=== PATIENT | male | born 1950 | race Caucasian/White ===

== ENCOUNTER 2022-03-24 21:47 | Inpatient (IN) | payer MEDICARE, OTHER ==
[~2022-03-24] VITALS: Ht 165.1 cm; Wt 39.5 kg
--- NOTE | 2022-03-24 22:00 | NUR ---
BIB SON FOR C/O FEVER AND COUGH SINCE TODAY. PT AWAKE A/OX1 UNDERSTAND URUGUAYAN. TOLERATING R/A WITH NO RESP DISTRESS; RESP EVEN AND NON LABORED. CONNECTED PT TO POX AND MONITOR. SAFETY MEASURES IN PLACE.
--- NOTE | 2022-03-24 22:17 | NUR ---
RECTAL TEMP 99.0F
--- NOTE | 2022-03-24 22:17 | NUR ---
DR. DALLIN MACHADO AT PT'S BEDSIDE
[2022-03-24] MEDS ORDERED: ACETAMINOPHEN 650 MG/SUPP.RECT RC ONE ×2 (22:25→22:30)
--- NOTE | 2022-03-24 22:27 | NUR ---
AIRCRAFT POWERPLANT REPAIRER AT PT'S BEDSIDE
--- NOTE | 2022-03-24 22:28 | NUR ---
EMT AT PT'S BEDSIDE FOR EKG
--- NOTE | 2022-03-24 23:01 | NUR ---
ESTABLISHED IV RFA #18G S/L. BLOOD, URINE, COVID ANTIGEN, AND INFLUENZA SWAB COLLECTED AND SENT TO LAB.
[2022-03-24 23:17] LABS: BASOPHILS % (AUTO) 0.1 % (0.0-2.0); EOSINOPHILS % (AUTO) 0.1 % (0.0-6.0); HEMATOCRIT 40 % (39-51); HEMOGLOBIN 13.1 g/dL (13.5-17.5); LYMPHOCYTES # (AUTO) 0.5 K/uL (0.8-4.8); LYMPHOCYTES % (AUTO) 5.1 % (20.0-44.0); MEAN CORPUSCULAR HGB CONC 33 g/dl (31.0-36.0); MEAN CORPUSCULAR VOLUME 99 fL (80-96); MONOCYTES # (AUTO) 0.4 K/uL (0.1-1.30); MONOCYTES % (AUTO) 4.7 % (2.0-12.0); PLATELET COUNT (AUTO) 157 K/uL (150-450); RED BLOOD CELL COUNT(AUTO) 3.97 MIL/uL (4.5-6.0); WHITE BLOOD COUNT (AUTO) 8.8 K/uL (4.3-11.0)
[2022-03-24 23:20] LABS: BILIRUBIN,URINE NEGATIVE (NEGATIVE); COLOR,URINE YELLOW (YELLOW); LEUKOCYTE ESTERASE ,URINE NEGATIVE (NEGATIVE); NITRITE, URINE NEGATIVE (NEGATIVE); PH,URINE 5.5 (5.0-8.0); PROTEIN,URINE TRACE mg/dl (NEGATIVE); UGLUCOSE NEGATIVE (NEGATIVE); UROBILINOGEN,URINE 0.2 EU/dL (0.2)
[2022-03-24 23:26] LABS: CARBON DIOXIDE 28 mmol/L (21-32); CHLORIDE 103 mmol/L (98-107); CREATININE 1.2 mg/dL (0.6-1.3); GLUCOSE 135 mg/dL (74-106); POTASSIUM 4.2 mmol/L (3.5-5.1); SODIUM SERUM 139 mmol/L (136-145); UREA NITROGEN, BLOOD 29 mg/dL (7-18)
[2022-03-24 23:32] LABS: ALANINE AMINOTRANSFERASE 19 U/L (12-78); ALBUMIN 3.4 g/dL (3.4-5.0); ALKALINE PHOSPHATASE 61 U/L (46-116); ASPARTATE AMINOTRANSFERASE 27 U/L (15-37); BILIRUBIN,DIRECT 0.1 mg/dL (0.0-0.2); BILIRUBIN,TOTAL 0.3 mg/dL (0.2-1.0); TOTAL PROTEIN, SERUM 8.6 g/dL (6.4-8.2)
--- NOTE | 2022-03-24 23:45 | NUR ---
COVID POSITIVE; DR. CHU DO AWARE. CONTACT DROPLET ISO IN PLACE.
[2022-03-25] VITALS (15 sets, daily range): BP systolic 72–122; BP diastolic 35–55
[2022-03-25] MEDS ORDERED: IV NS 0.9% 1,000 ML BAG IV ONE
--- NOTE | 2022-03-25 01:27 | NUR ---
SALESPERSON BOOKS AT PT'S BEDSIDE
--- NOTE | 2022-03-25 01:40 | NUR ---
MRSA SWAB COLLECTED AND SENT TO LAB. PATIENT'S BELONGINGS LIST DONE.
[2022-03-25] MEDS ORDERED: ONDANSETRON HCL/PF 4 MG/2 ML VIAL IVP PRN (02:00)
[2022-03-25] MEDS ORDERED: ALBUTEROL FS 2.5 MG/0.5 ML VIAL.NEB NEB PRN (02:00)
[2022-03-25] MEDS ORDERED: QUET25TA PO (02:14)
[2022-03-25] MEDS ORDERED: FOLI1CAP7 PO (02:14)
[2022-03-25] MEDS ORDERED: MEMA10TA PO (02:14)
--- NOTE | 2022-03-25 02:30 | NUR ---
REPORT GIVEN TO KATHRYN WEAVER RN FOR KAYLEEN
--- NOTE | 2022-03-25 02:54 | NUR ---
COMPENSATION COORDINATOR NOTES: RECEIVED REPORT FROM SECURITIES VAULT SUPERVISOR LARRY. PT TRANSFERRED TO MEG FROM ER, PLACED IN ROOM 104 BED 1. PT AWAKE, ALERT/ORIENTED X1 CONFUSION AND UNCLEAR SPEECH. ABLE TO SAY ONLY HIS NAME IN [place] BUT DOESN'T REMEMBER ANYTHING ELSE. ON O2 AT 2L/MIN VIA N/C AND PT TOLERATED WELL. O2 SAT 98%. IV ACCESS ON RFA#18G INTACT AND PATENT. NO S/S OF INFILTRATIONS. NO C/O PAIN OR DISCOMFORT. NO ACUTE DISTRESS. BODY ASSESSMENT DONE. NO OPEN SKIN OR SKIN DISCOLORATION. NOTED. SKIN INTACT AND DRY TO TOUCH. ON CARDIAC MONITORING- HR 84. ALL SAFETY MEASURES IN PLACE. BED IN LOWEST POSITION AND LOCKED. SIDE RAILS UP X3, BED ALARM ON. PLACE CALL LIGHT WITH IN REACH. WILL CONTINUE TO MONITOR
--- NOTE | 2022-03-25 03:01 | NUR ---
PT TRANSFERRED TO MEG 104 VIA ACLS PROTOCOL. VSS. ALL BELONGINGS INCLUDING W/C WITH PT. PT TOLERATED TRANSFER WELL.
[2022-03-25] MEDS: IV NS 0.9% 1,000 ML IV SCH ×2 (03:35→15:25)
--- NOTE | 2022-03-25 06:30 | NUR ---
RN CLOSING NOTES: PT AWAKE, ALERT/ORIENTED X1 CONFUSION AND UNCLEAR SPEECH. ON O2 AT 2L/MIN VIA N/C AND PT TOLERATED WELL. O2 SAT 98%. IV ACCESS ON RFA#18G INTACT AND PATENT. NO S/S OF INFILTRATIONS. NS RUNNING AT 75CC/HR. NO FACIAL GRIMACING NOTED. NO ACUTE DISTRESS. IV THERAPY GIVEN PER ORDER. ALL SAFETY MEASURES IN PLACE. BED IN LOWEST POSITION AND LOCKED. SIDE RAILS UP X3, BED ALARM ON. PLACE CALL LIGHT WITH IN REACH. WILL ENDORSE TO MORNING SHIFT NURSE.
[2022-03-25] MEDS: IPRATROPIUM/ALBUTEROL INHALER IH SCH ×3 (06:41→17:00)
--- NOTE | 2022-03-25 07:36 | NUR ---
RN OPENING NOTES: RECEIVED PT IN BED, A/O X1 WITH CONFUSION AND UNCLEAR SPEECH. ON O2 AT 2L/MIN VIA N/C AND PT TOLERATED WELL. O2 SAT 98%. IV ACCESS ON RFA#18G INTACT AND PATENT. NO S/S OF INFILTRATIONS. NS RUNNING AT 75CC/HR. NO FACIAL GRIMACING NOTED. NO ACUTE DISTRESS. ALL SAFETY MEASURES IN PLACE. BED IN LOWEST POSITION AND LOCKED. SIDE RAILS UP X3, BED ALARM ON. PLACE CALL LIGHT WITH IN REACH. WILL ENDORSE TO MORNING SHIFT NURSE.
[2022-03-25] MEDS: DOCUSATE SODIUM LIQ 100 MG/10 ML UDC PO SCH ×2 (08:10→16:05)
[2022-03-25] MEDS: POLYETHYLENE GLYCOL 3350 17 GM POWD.PACK PO SCH (08:11)
[2022-03-25] MEDS: HEPARIN SODIUM, PORCINE 5000 UNITS/1 ML VIAL SQ SCH ×2 (08:12→21:06)
[2022-03-25] MEDS ORDERED: DEXAMETHASONE 1 MG TABLET PO SCH (09:00)
--- NOTE | 2022-03-25 16:15 | NUR ---
LATEST BP 80/37, PER IAN JARA, CURRENTLY GIVING 1L BOLUS OF LR. WILL REPORT BACK TO INVESTIGATIVE SHOPPER WITH NEW BP ONCE BOLUS COMPLETE.
--- NOTE | 2022-03-25 19:10 | NUR ---
RN OPENING NOTE RECEIVED PATIENT RESTING IN BED. AWAKE, ALERT AND ORIENTED TO NAME ONLY. CONFUSED AT BASELINE. NO S/SX OF PAIN NOTED AT THIS TIME. CONTINUES ON O2 2L VIA NC WITH NO S/SX OF RESPIRATORY DISTRESS NOTED. IV ACCESS TO RIGHT FOREARM #18G INTACT AND PATENT. CONTINUES ON IV D5LR 500CC BOLUS. TELE MONITOR IN PLACE WITH CURRENT READING SR. CALL LIGHT WITHIN REACH. ASPIRATION, FALL AND SAFETY PRECAUTIONS MAINTAINED. ALL NEEDS ATTENDED TO AT THIS TIME.
--- NOTE | 2022-03-25 19:16 | NUR ---
latest bp is 104/40. Per Cesar Zamora another 500ml bolus of LR infusing.
--- NOTE | 2022-03-25 19:30 | NUR ---
RN CLOSING NOTES: PT IN BED, A/O X1 WITH CONFUSION AND UNCLEAR SPEECH. ON O2 AT 2L/MIN VIA N/C, O2 SAT 98%. IV ACCESS ON RFA#18G INTACT AND PATENT. NO S/S OF INFILTRATIONS. 500ML BOLUS OF LR RUNNING. NO FACIAL GRIMACING NOTED. NO ACUTE DISTRESS. ALL SAFETY MEASURES IN PLACE. BED IN LOWEST POSITION AND LOCKED. SIDE RAILS UP X3, BED ALARM ON. PLACE CALL LIGHT WITH IN REACH. WILL ENDORSE TO TOUR SALES REPRESENTATIVE NURSE FOR KAYLEEN.
--- NOTE | 2022-03-25 20:30 | NUR ---
2030 Patient remains hypotensive after 1.5 liter of LR bolus. BP checked 85/40 on the machine and 72/35 manually. Patient awake and responsive, but confused. No signs of distress noted. O2 saturation 95% on 2L NC. Dr. Vela was notified with order to transfer patient to ICU to start on Levophed drip. Order noted.
[2022-03-25] MEDS ORDERED: NOREPINEPHRINE 8 MG in IV NS 0.9% 242 ML IV PRN (21:00)
--- NOTE | 2022-03-25 21:30 | NUR ---
2130 Report given to MARLON Romeo for transfer of care with questions answered.
--- NOTE | 2022-03-25 21:40 | NUR ---
2140 Transferred to ICU on ACLS protocol. Patient awake and in no apparent distress.
[2022-03-25] MEDS: IV D5 LR 1,000 ML IV PRN (21:42)
--- NOTE | 2022-03-25 21:42 | NUR ---
ICU/SPONGE PRESS OPERATOR PT RECEIVED FROM MEG, ROOM 104 FOR LOW PT. PT PLACED ON MONITOR. MOSES CATH PLACED. STARTED IVF THAT WAS ORDERED DOWN STAIRS. PT'S BLOOD PRESSURE IS STABLE AT 100'S. WILL CONTINUE TO MONITOR THIS PT.
--- NOTE | 2022-03-25 21:50 | NUR ---
ICU/CIRCULATION SALES REPRESENTATIVE MOSES CATH WAS PLACED AND RESTRAINTS WERE PLACED, PT PULLING AT LINE AND WAS VERY WET. PT HAS POTENTIAL FOR SKIN BREAK DOWN.
--- NOTE | 2022-03-25 21:56 | NUR ---
ADULT CROSSING GUARD NOTE PATIENT TRANSFERRED TO ICU ROOM 255 UNDER ACLS PROTOCOL.
--- NOTE | 2022-03-25 22:00 | NUR ---
ICU/RENTAL COORDINATOR BELONGING LIST DONE, DID NOT FIND ONE IN THE CHART.
--- NOTE | 2022-03-25 22:45 | NUR ---
ICU/ENGLISH HORN PLAYER STARTED LEVO ON THIS PT FOR LOW BLOOD PRESSURE IN THE 80'S BY PROGRAM PRODUCTION SPECIALIST NURSE. WILL CONTINUE TO MONITOR THIS PT.
[2022-03-26] VITALS (97 sets, daily range): BP systolic 68–149; BP diastolic 26–98
[2022-03-26] MEDS: IPRATROPIUM/ALBUTEROL INHALER IH SCH ×4 (00:01→18:00)
--- NOTE | 2022-03-26 00:10 | NUR ---
ICU/COMPOUNDER NOTIFED MD ABOUT LOW HEART RATE SAID TO START DOPAMINE TO KEEP HEART RATE GREATER THAN 60 AND SBP GREATER THAN MAP GREATER THAN 65. WAITING FOR PHARMACY TO APPROVE THIS.
[2022-03-26] MEDS ORDERED: DOPamine 400 MG/D5W 250 ML RTU BAG IV ONE (00:30)
[2022-03-26] MEDS ORDERED: DOPamine 400MG/D5W 250ML RTU 250 ML IV PRN (00:30)
--- NOTE | 2022-03-26 00:52 | NUR ---
ICU/VP SOFTWARE ENGINEERING MIDLINE PLACED FOR THIS PT. PT HAS POOR IV ACCESS. WILL ZEUS NUE TO MONITOR THIS PT.
[2022-03-26] MEDS: DOPamine 400MG/D5W 250ML RTU 250 ML IV PRN ×2 (01:15→18:00)
--- NOTE | 2022-03-26 01:32 | NUR ---
ICU/CLUTCH MECHANIC DOPAMINE WAS STARTED AND LEVO STOP FOR LOW HEART RATE AND MAINTAIN BLOOD PRESSURE, BY CUSTOM LEATHER PRODUCTS MAKER NURSE. WILL CONTINUE TO MONITOR THIS PT'S HEART RATE AND BLOOD PRESSURE.
--- NOTE | 2022-03-26 04:00 | NUR ---
ICU/BUYING AGENT PT HAS TEMP. 100.4 GAVE PO TYLENOL FOR THIS. ALSO PT HAD LARGE BM WHEN TURNED AND REPOSITIONED FOR COMFORT AND CARE. WILL CONTINUE TO MONITOR THIS PT AND SATURATION.
[2022-03-26] MEDS: ACETAMINOPHEN 325 MG TABLET PO PRN ×2 (04:02→20:36)
[2022-03-26 04:17] LABS: BASOPHILS % (AUTO) 0.1 % (0.0-2.0); HEMATOCRIT 32 % (39-51); HEMOGLOBIN 11.1 g/dL (13.5-17.5); LYMPHOCYTES # (AUTO) 0.7 K/uL (0.8-4.8); LYMPHOCYTES % (AUTO) 7.8 % (20.0-44.0); MEAN CORPUSCULAR HGB CONC 35 g/dl (31.0-36.0); MEAN CORPUSCULAR VOLUME 98 fL (80-96); MONOCYTES # (AUTO) 0.4 K/uL (0.1-1.30); MONOCYTES % (AUTO) 3.8 % (2.0-12.0); NEUTROPHILS # (AUTO) 8.3 K/uL (1.8-8.9); NEUTROPHILS % (AUTO) 88.3 % (43.0-81.0); PLATELET COUNT (AUTO) 115 K/uL (150-450); RED BLOOD CELL COUNT(AUTO) 3.28 MIL/uL (4.5-6.0); WHITE BLOOD COUNT (AUTO) 9.4 K/uL (4.3-11.0)
[2022-03-26 04:30] LABS: ALANINE AMINOTRANSFERASE 20 U/L (12-78); ALBUMIN 2.3 g/dL (3.4-5.0); ALKALINE PHOSPHATASE 44 U/L (46-116); ASPARTATE AMINOTRANSFERASE 28 U/L (15-37); BILIRUBIN,TOTAL 0.5 mg/dL (0.2-1.0); CALCIUM, SERUM 7.8 mg/dL (8.5-10.1); CARBON DIOXIDE 27 mmol/L (21-32); CHLORIDE 106 mmol/L (98-107); CREATININE 0.8 mg/dL (0.6-1.3); GLUCOSE 146 mg/dL (74-106); MAGNESIUM 1.6 mg/dL (1.8-2.4); PHOSPHORUS 1.6 mg/dL (2.5-4.9); POTASSIUM 3.8 mmol/L (3.5-5.1); SODIUM SERUM 139 mmol/L (136-145); TOTAL PROTEIN, SERUM 6.1 g/dL (6.4-8.2); UREA NITROGEN, BLOOD 16 mg/dL (7-18)
--- NOTE | 2022-03-26 04:59 | NUR ---
ICU/PACKAGE DELIVERY ROOM SERVICE RUNNER PT'S BLOOD PRESSURE AND HEART RATE WAS BOTH LOW AT 54 HEART RATE, BLOOD PRESSURE 73/35. CHARGE NURSE NOTIFED ABOUT THIS, SHE THEN INCREASED THE DOPAMINE BY 5MCG TO NOW TOTAL OF 7MCG. WILL MONITOR THIS PT.
--- NOTE | 2022-03-26 05:26 | NUR ---
ICU/MAINTENANCE TEAM LEADER PT'S HEART RATE DECREASED DOWN TO 40'S, THEN CHARGE NURSE INCREASED THE DOPA DRIP FROM 7 TO 12 NOW. WILL CONTINUE TO MONITOR THIS PT.
--- NOTE | 2022-03-26 06:03 | NUR ---
ICU/DIRECTOR OF CONTENT AND PROGRAMMING BEDSIDE EDUCATIONAL PSYCHOLOGIST SAID PT AT 0500 WENT INTO SINUS ARRHYTHMIA, 2 DEGREE HEART BLOCK. STAT EKG WAS DONE TO SEE. DOESN'T SHOW THIS HOWEVER WILL PASS ON TO DAY NURSE.
--- NOTE | 2022-03-26 08:00 | NUR ---
RN NOTES PT FOUND SEMI FOWLERS DISPLAYING NO S/S OF ACUTE DISTRESS, FLACC = 0 AND BREATHING IS EVEN AND UNLABORED ON 4L O2 NC. RN MADE MULTIPLE ATTEMPTS TO COMMUNICATE WITH PATIENT IN [place] (LUC CONWAY, & CON ROSAS). PT WAS NOT INTERACTING WITH ENVIRONMENT. FOOD WAS PLACED IN FRONT OF PATIENT'S MOUTH AND DID NOT EAT. UNABLE TO GIVE PO RX AT THIS TIME. PRIMARY PROVIDER WILL BE INFORMED. R UA ML IS PATIENT AND INTACT. MOSES CATH RESERVOIR BELOW PATIENT DRAINING BY GRAVITY. BILATERAL SOFT WRISTS APPLIED, PULSES PALPATED AND CAP REFILL < 3 SECONDS BILATERALLY. RN WILL CONTINUE CARE PLAN AND ANTICIPATE NEEDS. SAFETY MEASURES IN PLACE, BED LOCKED AND IN LOWEST POSITION, SIDE RAILS UPX2, CALL LIGHT WITHIN REACH, BED ALARM ARMED.
[2022-03-26] MEDS: DOCUSATE SODIUM LIQ 100 MG/10 ML UDC PO SCH ×3 (08:08→17:00)
[2022-03-26] MEDS: VIT B CMPLX 3/FA/VIT C/BIOTIN 1 TAB TABLET PO SCH ×2 (08:08→08:33)
[2022-03-26] MEDS: QUETIAPINE FUMARATE 25 MG TABLET PO SCH ×2 (08:08→08:33)
[2022-03-26] MEDS: MEMANTINE HCL 5 MG TABLET PO SCH ×2 (08:08→08:33)
[2022-03-26] MEDS: POLYETHYLENE GLYCOL 3350 17 GM POWD.PACK PO SCH ×2 (08:08→08:33)
[2022-03-26] MEDS: HEPARIN SODIUM, PORCINE 5000 UNITS/1 ML VIAL SQ SCH ×2 (08:10→20:21)
[2022-03-26] MEDS: NEUTRA PHOS 1 POWD.PACKET PO SCH ×2 (10:30→18:30)
[2022-03-26] MEDS ORDERED: Magnesium 1GM/D5W 100ML PREMIX 100 ML IV SCH (10:30)
[2022-03-26] MEDS: Magnesium 1GM/D5W 100ML PREMIX 100 ML IV SCH ×2 (10:42→12:14)
[2022-03-26] MEDS: HYDROCORTISONE SOD SUCCINATE 100 MG/2 ML VIAL IV SCH ×3 (10:59→20:21)
[2022-03-26 11:21] LABS: THYROID STIMULATING HORMONE 0.672 uIU/mL (0.358-3.74)
--- NOTE | 2022-03-26 11:40 | NUR ---
RN NOTES RN ATTEMPTED AGAIN TO COMMUNICATE WITH PT, OFFERED WATER (AQUA) COFFEE (COFFEE) AND APPLE JUICE (JUGO DE MANZANA), PT WAS NOT INTERACTING AT ALL WITH NURSE. PT RESPONSIVE TO TACTILE STIMULATION. RN INFORMED DR GABRIELA MD GAVE ORDERS: KPHOS 15 MMOL IV X1. RN ACKNOWLEDGED AND WILL EXECUTE ORDER.
[2022-03-26] MEDS ORDERED: POTASSIUM PHOSPHATE MM 15 MMOL in IV NS 0.9% 250 ML IV SCH (12:00)
--- NOTE | 2022-03-26 12:20 | NUR ---
MD COMMUNICATION RN INFORMED MD OF PT FEVER. 101.4, MD GAVE ORDER: GIVE ACETAMINOPHEN 650MG SUPP Q6H FEVER OR MILD PAIN. RN ACKNOWLEDGED AND WILL EXECUTE ORDER
[2022-03-26] MEDS: ACETAMINOPHEN 650 MG/SUPP.RECT RC PRN (12:59)
[2022-03-26] MEDS: IV D5 LR 1,000 ML IV PRN (13:22)
--- NOTE | 2022-03-26 18:30 | NUR ---
NURSES NOTES K PHOS WAS GIVEN VIA IV
--- NOTE | 2022-03-26 18:54 | NUR ---
RN NOTES PT FOUND SEMI FOWLERS DISPLAYING NO S/S OF ACUTE DISTRESS, FLACC = 0 AND BREATHING IS EVEN AND UNLABORED ON 4L O2 NC. R UA ML IS PATIENT AND INTACT. MOSES CATH RESERVOIR BELOW PATIENT DRAINING BY GRAVITY. BILATERAL SOFT WRISTS APPLIED, PULSES PALPATED AND CAP REFILL < 3 SECONDS BILATERALLY. RN WILL CONTINUE CARE PLAN AND ANTICIPATE NEEDS. SAFETY MEASURES IN PLACE, BED LOCKED AND IN LOWEST POSITION, SIDE RAILS UPX2, CALL LIGHT WITHIN REACH, BED ALARM ARMED. Addendum: 03/26/22 at 1907 by JESSICA REVELES RN CORRECTION: SBAR AND REPORT GIVEN TO GEOTECHNICAL ENGINEERING TECHNICIAN RN, ALL QUESTIONS ANSWERED. PT ENDORSED IN STABLE CONDITION FOR KAYLEEN.
--- NOTE | 2022-03-26 20:45 | NUR ---
ICU/UI ENGINEER PT HAS TEMP. 100.4 GAVE PO TYLENOL FOR THIS, CRUSHED WITH PUDDING. ALSO PT HAD LARGE BM WHEN TURNED AND REPOSITIONED FOR COMFORT AND CARE. WILL CONTINUE TO MONITOR THIS PT AND SATURATION.
[2022-03-27] VITALS (102 sets, daily range): BP systolic 45–153; BP diastolic 26–83
--- NOTE | 2022-03-27 00:28 | NUR ---
ICU/FURNITURE STAINER PT IS CONFUSED UNABLE TO USE HIS INHALER. PT HAS HISTORY OF ADVANCE DEMENTIA.
[2022-03-27 04:23] LABS: BASOPHILS % (AUTO) 0.1 % (0.0-2.0); HEMATOCRIT 35 % (39-51); HEMOGLOBIN 11.9 g/dL (13.5-17.5); LYMPHOCYTES # (AUTO) 0.6 K/uL (0.8-4.8); LYMPHOCYTES % (AUTO) 8.7 % (20.0-44.0); MEAN CORPUSCULAR HGB CONC 34 g/dl (31.0-36.0); MEAN CORPUSCULAR VOLUME 97 fL (80-96); MONOCYTES # (AUTO) 0.3 K/uL (0.1-1.30); MONOCYTES % (AUTO) 3.9 % (2.0-12.0); NEUTROPHILS # (AUTO) 5.7 K/uL (1.8-8.9); NEUTROPHILS % (AUTO) 87.3 % (43.0-81.0); PLATELET COUNT (AUTO) 132 K/uL (150-450); RED BLOOD CELL COUNT(AUTO) 3.61 MIL/uL (4.5-6.0); WHITE BLOOD COUNT (AUTO) 6.6 K/uL (4.3-11.0)
[2022-03-27 04:46] LABS: ALANINE AMINOTRANSFERASE 24 U/L (12-78); ALBUMIN 2.3 g/dL (3.4-5.0); ALKALINE PHOSPHATASE 47 U/L (46-116); ASPARTATE AMINOTRANSFERASE 32 U/L (15-37); BILIRUBIN,TOTAL 0.3 mg/dL (0.2-1.0); CALCIUM, SERUM 7.8 mg/dL (8.5-10.1); CARBON DIOXIDE 27 mmol/L (21-32); CHLORIDE 99 mmol/L (98-107); CREATININE 0.9 mg/dL (0.6-1.3); GLUCOSE 154 mg/dL (74-106); MAGNESIUM 1.9 mg/dL (1.8-2.4); PHOSPHORUS 2.9 mg/dL (2.5-4.9); SODIUM SERUM 135 mmol/L (136-145); TOTAL PROTEIN, SERUM 6.6 g/dL (6.4-8.2); UREA NITROGEN, BLOOD 9 mg/dL (7-18)
[2022-03-27] MEDS: IPRATROPIUM/ALBUTEROL INHALER IH SCH ×4 (05:09→17:38)
--- NOTE | 2022-03-27 05:09 | NUR ---
ICU/MAIL CARRIER PT IS CONFUSED UNABLE TO USE HIS 0600 INHALER. PT HAS HISTORY OF ADVANCE DEMENTIA.
[2022-03-27] MEDS: HYDROCORTISONE SOD SUCCINATE 100 MG/2 ML VIAL IV SCH ×3 (05:28→20:55)
[2022-03-27] MEDS: IV D5 LR 1,000 ML IV PRN (06:06)
[2022-03-27] MEDS ORDERED: DOCUSATE SODIUM 100 MG CAPSULE PO PRN (08:00)
--- NOTE | 2022-03-27 08:00 | NUR ---
RN NOTES RECEIVED PATIENT IN THE CONFUSED ON O24LNC O2-94NC. HR-59. PATIENT ON DOPAMINE DRIP 10MCG/KG/MIN. PATIENT CONFUSED, UNABLE TO UNDERSTAND CONCEPTS, HARD TO FOLLOW UP DIRECTION. MOSES DRAINING VIA GRAVITY, IV ACCESS ON FLACO MIDLINE INTACT, INFUSING D5LR @75 ML/HR, AND DOPAMINE. RECHECKED RESTRAIN BILATERAL WRISTS INTACT. ASSIST TURN AND REPOSTION Q 2 HR. WILL FOLLOW UP.
[2022-03-27] MEDS: VIT B CMPLX 3/FA/VIT C/BIOTIN 1 TAB TABLET PO SCH (08:25)
[2022-03-27] MEDS: QUETIAPINE FUMARATE 25 MG TABLET PO SCH (08:25)
[2022-03-27] MEDS: MEMANTINE HCL 5 MG TABLET PO SCH (08:25)
[2022-03-27] MEDS: HEPARIN SODIUM, PORCINE 5000 UNITS/1 ML VIAL SQ SCH ×2 (08:26→20:57)
[2022-03-27] MEDS ORDERED: POTASSIUM CHLORIDE 20 MEQ TAB.PRT.SR PO SCH ×4 (08:30→09:00)
[2022-03-27] MEDS ORDERED: PIPERACILLIN /TAZOBACTAM 3.375 G in IV D5W 50 ML IV SCH (08:30)
[2022-03-27 09:07] LABS: *SPE A/G RATIO 0.8 (0.7-1.7); *SPE ALPHA-1-GLOBULIN 0.3 g/dL (0.0-0.4); *SPE ALPHA-2-GLOBULIN 0.7 g/dL (0.4-1.0); *SPE M-SPIKE Not Observed g/dL (Not Observed)
[2022-03-27] MEDS: PIPERACILLIN /TAZOBACTAM 3.375 G in IV D5W 100 ML IV SCH ×3 (09:23→20:54)
[2022-03-27] MEDS: DOPamine 400MG/D5W 250ML RTU 250 ML IV PRN ×2 (09:36→20:58)
[2022-03-27] MEDS: POTASSIUM CL. PREMIX PERIPHER. 50 ML IV SCH ×8 (09:52→17:38)
[2022-03-27] MEDS: ACETAMINOPHEN 650 MG/SUPP.RECT RC PRN (14:54)
--- NOTE | 2022-03-27 14:54 | NUR ---
rn notes T-100.7 F, ADMINISTERED TYLENOL 650 MG RECTAL SUPP.
--- NOTE | 2022-03-27 17:57 | NUR ---
RN NOTES T-100F, PM CARE DONE ,DUE MEDICATION ADMINISTERED, BP- 128/67, P-60. INFUSING DOPAMINE @14MCG/KG/MIN, ASSIST TURN AND REPOSTION, MOSES DRAINING VIA GRAVITY, RESTRAIN RECHECKED Q 2 HR. PATIENT NPO FOR ASPIRATION PRECAUTION, WAITING SWALLOW EVALUATION. PER FAMILY REFUSED NGT INSERTION. HOSPITALIST AWARE OF. ENDORSED ONCOMING NURSE KAYLEEN.
--- NOTE | 2022-03-27 20:15 | NUR ---
ICU/CASHIER AND WAITER/WAITRESS STABLE BLOOD PRESSURE, CHARGE NURSE MADE AWARE OF THIS AND DECREASED DOPA TO 12MCG FROM 14. WILL CONTINUE TO CLOESLY MONITOR THIS PT AND HIS BLOOD PRESSURE.
--- NOTE | 2022-03-27 22:10 | NUR ---
ICU/BALL POINTS INSPECTOR STABLE BLOOD PRESSURE, CHARGE NURSE MADE AWARE OF THIS AND DECREASED DOPA TO 10MCG FROM 12. WILL CONTINUE TO CLOESLY MONITOR THIS PT AND HIS BLOOD PRESSURE.
--- NOTE | 2022-03-27 23:00 | NUR ---
ICU/CLIPPER COUNTERS STAT CHEST XRAY DONE TO R/O ASPIRATION LOW SAT'S, XRAY SHOWS NEW RIGHT LOWER LOBE OPACITY AND LEFT LOWER LOBE OPACITY IS WORSE. WILL MONITOR THIS PT AND HIS SATURATION.
[2022-03-28] VITALS (90 sets, daily range): BP systolic 79–157; BP diastolic 43–93
--- NOTE | 2022-03-28 00:10 | NUR ---
ICU/CATCHER PLUG PT IS CONFUSED UNABLE TO USE HIS INHALER. PT HAS HISTORY OF ADVANCE DEMENTIA.
[2022-03-28] MEDS: HYDROCORTISONE SOD SUCCINATE 100 MG/2 ML VIAL IV SCH ×3 (04:56→20:42)
[2022-03-28] MEDS: PIPERACILLIN /TAZOBACTAM 3.375 G in IV D5W 100 ML IV SCH ×3 (04:57→20:42)
--- NOTE | 2022-03-28 05:10 | NUR ---
ICU/SOIL TECHNOLOGIST STABLE BLOOD PRESSURE, CHARGE NURSE MADE AWARE OF THIS AND DECREASED DOPA TO 8MCG FROM 10. WILL CONTINUE TO CLOESLY MONITOR THIS PT AND HIS BLOOD PRESSURE.
[2022-03-28 05:17] LABS: HEMATOCRIT 37 % (39-51); HEMOGLOBIN 12.7 g/dL (13.5-17.5); LYMPHOCYTES # (AUTO) 0.4 K/uL (0.8-4.8); MEAN CORPUSCULAR HGB CONC 34 g/dl (31.0-36.0); MEAN CORPUSCULAR VOLUME 96 fL (80-96); MONOCYTES # (AUTO) 0.2 K/uL (0.1-1.30); MONOCYTES % (AUTO) 1.8 % (2.0-12.0); NEUTROPHILS # (AUTO) 11.9 K/uL (1.8-8.9); NEUTROPHILS % (AUTO) 95.2 % (43.0-81.0); PLATELET COUNT (AUTO) 130 K/uL (150-450); RED BLOOD CELL COUNT(AUTO) 3.87 MIL/uL (4.5-6.0); WHITE BLOOD COUNT (AUTO) 12.5 K/uL (4.3-11.0)
[2022-03-28 05:26] LABS: ALANINE AMINOTRANSFERASE 21 U/L (12-78); ALBUMIN 2.3 g/dL (3.4-5.0); ALKALINE PHOSPHATASE 46 U/L (46-116); ASPARTATE AMINOTRANSFERASE 27 U/L (15-37); BILIRUBIN,TOTAL 0.4 mg/dL (0.2-1.0); CALCIUM, SERUM 8.2 mg/dL (8.5-10.1); CARBON DIOXIDE 31 mmol/L (21-32); CHLORIDE 101 mmol/L (98-107); CREATININE 0.9 mg/dL (0.6-1.3); GLUCOSE 154 mg/dL (74-106); POTASSIUM 3.9 mmol/L (3.5-5.1); SODIUM SERUM 135 mmol/L (136-145); TOTAL PROTEIN, SERUM 6.8 g/dL (6.4-8.2); UREA NITROGEN, BLOOD 10 mg/dL (7-18)
[2022-03-28] MEDS: IPRATROPIUM/ALBUTEROL INHALER IH SCH ×5 (06:00→23:26)
--- NOTE | 2022-03-28 06:41 | NUR ---
ICU/DIRECTOR OF SPECIAL EVENTS PT IS CONFUSED UNABLE TO USE HIS INHALER. PT HAS HISTORY OF ADVANCE DEMENTIA. WILL HAVE DAY NURSE ADDRESS THIS WITH EITHER A SPACER OR DISCONTINUE THIS MED.
--- NOTE | 2022-03-28 06:49 | NUR ---
ICU/PRODUCT SUPPORT SPECIALIST UNSTABLE BLOOD PRESSURE, CHARGE NURSE MADE AWARE OF THIS AND INCREASED DOPA TO 10MCG FROM 8. WILL CONTINUE TO CLOESLY MONITOR THIS PT AND HIS BLOOD PRESSURE.
--- NOTE | 2022-03-28 08:00 | NUR ---
RN NOTES PATIENT CONFUSED ON O2-5LNC O2-94NC. HR-59. PATIENT ON DOPAMINE DRIP 10MCG/KG/MIN. UNABLE TO UNDERSTAND CONCEPTS. MOSES DRAINING VIA GRAVITY, IV ACCESS ON FLACO MIDLINE INTACT. RECHECKED RESTRAIN BILATERAL WRISTS INTACT. ASSIST TURN AND REPOSTION Q 2 HR. WILL FOLLOW UP.
[2022-03-28] MEDS: MEMANTINE HCL 5 MG TABLET PO SCH (08:09)
[2022-03-28] MEDS: QUETIAPINE FUMARATE 25 MG TABLET PO SCH (08:10)
[2022-03-28] MEDS: VIT B CMPLX 3/FA/VIT C/BIOTIN 1 TAB TABLET PO SCH (08:10)
[2022-03-28] MEDS: HEPARIN SODIUM, PORCINE 5000 UNITS/1 ML VIAL SQ SCH ×2 (08:17→20:42)
[2022-03-28] MEDS: DOPamine 400MG/D5W 250ML RTU 250 ML IV PRN (12:38)
--- NOTE | 2022-03-28 18:00 | NUR ---
RN NOTES PM CARE DONE, PATIENT STILL NPO, SW NOT DONE TODAY, HOSPITALIST AWARE OF. ASSIST TURN AND REPOSTION Q 2 HR. ENDORSED ONCOMING NURSE FOLLOW PLAN OF CARE.
--- NOTE | 2022-03-28 23:27 | NUR ---
ICU/JUNIOR ACCOUNTANT BOOKKEEPER PT IS CONFUSED UNABLE TO USE HIS INHALER. PT HAS HISTORY OF ADVANCE DEMENTIA.
[2022-03-29] VITALS (99 sets, daily range): BP systolic 66–151; BP diastolic 34–92
[2022-03-29] MEDS: DOPamine 400MG/D5W 250ML RTU 250 ML IV PRN ×2 (03:21→21:10)
[2022-03-29] MEDS: HYDROCORTISONE SOD SUCCINATE 100 MG/2 ML VIAL IV SCH ×3 (05:58→21:09)
[2022-03-29] MEDS: IPRATROPIUM/ALBUTEROL INHALER IH SCH ×3 (05:58→18:00)
[2022-03-29] MEDS: PIPERACILLIN /TAZOBACTAM 3.375 G in IV D5W 100 ML IV SCH ×3 (05:58→21:09)
[2022-03-29 06:03] LABS: HEMATOCRIT 38 % (39-51); HEMOGLOBIN 13.1 g/dL (13.5-17.5); LYMPHOCYTES # (AUTO) 0.5 K/uL (0.8-4.8); LYMPHOCYTES % (AUTO) 5.1 % (20.0-44.0); MEAN CORPUSCULAR HGB CONC 35 g/dl (31.0-36.0); MEAN CORPUSCULAR VOLUME 95 fL (80-96); MONOCYTES # (AUTO) 0.3 K/uL (0.1-1.30); MONOCYTES % (AUTO) 3.3 % (2.0-12.0); NEUTROPHILS # (AUTO) 9.6 K/uL (1.8-8.9); NEUTROPHILS % (AUTO) 91.6 % (43.0-81.0); PLATELET COUNT (AUTO) 125 K/uL (150-450); RED BLOOD CELL COUNT(AUTO) 3.96 MIL/uL (4.5-6.0); WHITE BLOOD COUNT (AUTO) 10.5 K/uL (4.3-11.0)
--- NOTE | 2022-03-29 06:30 | NUR ---
ICU/BOTTLE MACHINE OPERATOR PT IS CONFUSED UNABLE TO USE HIS INHALER. PT HAS HISTORY OF ADVANCE DEMENTIA. ASKED DAY NURSE TO GET AN INHALER SPACER, RT WAS ASKED FOR ONE HOWEVER WAS REFEREE TO CENTRAL SUPPLY FOR ONE.
[2022-03-29 06:40] LABS: ALANINE AMINOTRANSFERASE 24 U/L (12-78); ALBUMIN 2.2 g/dL (3.4-5.0); ALKALINE PHOSPHATASE 43 U/L (46-116); ASPARTATE AMINOTRANSFERASE 24 U/L (15-37); BILIRUBIN,TOTAL 0.4 mg/dL (0.2-1.0); CALCIUM, SERUM 8.2 mg/dL (8.5-10.1); CARBON DIOXIDE 32 mmol/L (21-32); CHLORIDE 100 mmol/L (98-107); CREATININE 0.9 mg/dL (0.6-1.3); GLUCOSE 152 mg/dL (74-106); MAGNESIUM 2.1 mg/dL (1.8-2.4); POTASSIUM 3.1 mmol/L (3.5-5.1); SODIUM SERUM 136 mmol/L (136-145); UREA NITROGEN, BLOOD 16 mg/dL (7-18)
--- NOTE | 2022-03-29 07:30 | NUR ---
RN NOTES PT FOUND SEMI FOWLERS DISPLAYING NO S/S OF DISTRESS, FLACC = 0 AND BREATHING IS EVEN AND UNLABORED ON 3L O2 NC. R UA ML IS PATIENT AND INTACT. MOSES CATH RESERVOIR IS BELOW PATIENT DRAINING BY GRAVITY. BILATERAL SOFT WRISTS APPLIED, PULSES PALPATED BILATERALLY AND CAP REFILL < 3 SECONDS BILATERALLY. RN WILL CONTINUE CARE PLAN AND ANTICIPATE NEEDS. SAFETY MEASURES IN PLACE, BED LOCKED AND IN LOWEST POSITION, SIDE RAILS UPX3, CALL LIGHT WITHIN REACH, BED ALARM ARMED.
[2022-03-29 08:07] LABS: TOTAL PROTEIN, SERUM 6.9 g/dL (6.4-8.2)
[2022-03-29] MEDS: HEPARIN SODIUM, PORCINE 5000 UNITS/1 ML VIAL SQ SCH ×2 (08:43→21:10)
[2022-03-29] MEDS: VIT B CMPLX 3/FA/VIT C/BIOTIN 1 TAB TABLET PO SCH (08:44)
[2022-03-29] MEDS: QUETIAPINE FUMARATE 25 MG TABLET PO SCH (08:44)
[2022-03-29] MEDS: MEMANTINE HCL 5 MG TABLET PO SCH (08:44)
[2022-03-29] MEDS ORDERED: POTASSIUM CHLORIDE 20 MEQ POWDER PACKET GT SCH (10:00)
[2022-03-29] MEDS: POTASSIUM CL. PREMIX PERIPHER. 50 ML IV SCH ×6 (10:15→16:09)
--- NOTE | 2022-03-29 11:45 | NUR ---
FREIGHT RATE CLERK COMMUNICATION RN SPOKE TO FREIGHT RATE CLERK ESTEFANI, FREIGHT RATE CLERK GAVE ORDERS: PERFORM BEDSIDE SWALLOW EVAL. RN ACKNOWLEDGED AND WILL EXECUTE ORDER DIRECTED.
--- NOTE | 2022-03-29 12:30 | NUR ---
RN NOTE BED SIDE SWALLOW EVAL FOUND PT HAD NO DIFFICULTY SWALLOWING APPLE SAUCE. PT CHOKED ON WATER AND STARTED TO COUGH. RN WILL INFORM PROVIDER.
--- NOTE | 2022-03-29 13:50 | NUR ---
DIRECTOR GLOBAL MARKET RESEARCH COMMUNICATION RN SPOKE TO DIRECTOR GLOBAL MARKET RESEARCH JARA ABOUT FINDINGS OF BEDSIDE SWALLOW EVAL. DIRECTOR GLOBAL MARKET RESEARCH GAVE ORDERS: PUREE CARDIAC DIET. RN ACKNOWLEDGED AND WILL EXECUTE ORDERED.
--- NOTE | 2022-03-29 19:14 | NUR ---
RN NOTES PT FOUND SEMI FOWLERS DISPLAYING NO S/S OF DISTRESS, FLACC = 0 AND BREATHING IS EVEN AND UNLABORED ON 3L O2 NC. R UA ML IS PATIENT AND INTACT. MOSES CATH RESERVOIR IS BELOW PATIENT DRAINING BY GRAVITY. BILATERAL SOFT WRISTS APPLIED, PULSES PALPATED BILATERALLY AND CAP REFILL < 3 SECONDS BILATERALLY. SBAR AND REPORT GIVEN TO ENDOCRINOLOGY TEACHER, ALL QUESTIONS ANSWERED SAFETY MEASURES IN PLACE, BED LOCKED AND IN LOWEST POSITION, SIDE RAILS UPX3, CALL LIGHT WITHIN REACH, BED ALARM ARMED. PT ENDORSED FOR KAYLEEN.
--- NOTE | 2022-03-29 21:30 | NUR ---
ICU/CARE MANAGEMENT SPECIALIST TRIED TO FEED PT DINNER HOWEVER PT WOULD COUGH WITH SOME OF THE LIQUIDS. STOPPED FOR NOW TO ALLOW PT TO RECOVER. WILL MONITOR THIS PT. PT APPEARS TO BE MORE CONFUSED THAN USUAL.
[2022-03-30] VITALS (85 sets, daily range): BP systolic 51–145; BP diastolic 30–73
--- NOTE | 2022-03-30 00:36 | NUR ---
ICU/SKATE BOARDER PT IS MORE CONFUSED THAN USUAL UNABLE TO USE HIS INHALER. PT HAS HISTORY OF ADVANCE DEMENTIA. DAY NURSE WASN'T ABLE TO GET AN INHALER SPACER, WILL TRY CENTRAL SUPPLY FOR ONE.
[2022-03-30 04:23] LABS: HEMATOCRIT 38 % (39-51); HEMOGLOBIN 13.1 g/dL (13.5-17.5); LYMPHOCYTES # (AUTO) 0.3 K/uL (0.8-4.8); LYMPHOCYTES % (AUTO) 3.4 % (20.0-44.0); MEAN CORPUSCULAR HGB CONC 35 g/dl (31.0-36.0); MEAN CORPUSCULAR VOLUME 96 fL (80-96); MONOCYTES # (AUTO) 0.5 K/uL (0.1-1.30); MONOCYTES % (AUTO) 5.3 % (2.0-12.0); NEUTROPHILS # (AUTO) 8.3 K/uL (1.8-8.9); NEUTROPHILS % (AUTO) 91.3 % (43.0-81.0); PLATELET COUNT (AUTO) 132 K/uL (150-450); RED BLOOD CELL COUNT(AUTO) 3.97 MIL/uL (4.5-6.0); WHITE BLOOD COUNT (AUTO) 9.1 K/uL (4.3-11.0)
[2022-03-30 04:36] LABS: ALANINE AMINOTRANSFERASE 23 U/L (12-78); ALBUMIN 2.2 g/dL (3.4-5.0); ALKALINE PHOSPHATASE 46 U/L (46-116); ASPARTATE AMINOTRANSFERASE 27 U/L (15-37); BILIRUBIN,TOTAL 0.4 mg/dL (0.2-1.0); CALCIUM, SERUM 8.2 mg/dL (8.5-10.1); CARBON DIOXIDE 32 mmol/L (21-32); CHLORIDE 102 mmol/L (98-107); CREATININE 0.8 mg/dL (0.6-1.3); GLUCOSE 142 mg/dL (74-106); MAGNESIUM 2.2 mg/dL (1.8-2.4); POTASSIUM 3.4 mmol/L (3.5-5.1); SODIUM SERUM 137 mmol/L (136-145); TOTAL PROTEIN, SERUM 6.6 g/dL (6.4-8.2); UREA NITROGEN, BLOOD 16 mg/dL (7-18)
[2022-03-30] MEDS: PIPERACILLIN /TAZOBACTAM 3.375 G in IV D5W 100 ML IV SCH ×3 (05:15→21:02)
[2022-03-30] MEDS: HYDROCORTISONE SOD SUCCINATE 100 MG/2 ML VIAL IV SCH ×3 (05:15→21:02)
[2022-03-30] MEDS: IPRATROPIUM/ALBUTEROL INHALER IH SCH ×4 (06:00→17:16)
--- NOTE | 2022-03-30 06:10 | NUR ---
ICU/LITHOGRAPHED PLATE INSPECTOR PT IS MORE CONFUSED THAN USUAL UNABLE TO USE HIS INHALER. PT HAS HISTORY OF ADVANCE DEMENTIA. DAY NURSE WASN'T ABLE TO GET AN INHALER SPACER, WILL TRY CENTRAL SUPPLY FOR ONE, AGAIN TODAY. OR HAVE MD DISCONTINUE THIS.
--- NOTE | 2022-03-30 07:35 | NUR ---
ICU/RN PT IS RESTING ON THE BED.ON 3L N/C SAT O2-99%.ON DOPAMINE DRIP.AWAKE CONFUSED.HAS DEMENTIA.WAITING FOR SWALLOW EVAL.NPO.RIGHT UPPER ARM MIDLINE.F/C IN PLACE DRAINING WITH YELLOW URINE.BILATERAL SOFT WRIST RESTRAINS ON.LABS REVIEW.MD AWARE.AFEBRILE.NO PAIN REPORTED AT THIS TIME.
[2022-03-30] MEDS: HEPARIN SODIUM, PORCINE 5000 UNITS/1 ML VIAL SQ SCH ×2 (08:29→21:03)
[2022-03-30] MEDS: QUETIAPINE FUMARATE 25 MG TABLET PO SCH (08:30)
[2022-03-30] MEDS: MEMANTINE HCL 5 MG TABLET PO SCH (08:30)
[2022-03-30] MEDS: VIT B CMPLX 3/FA/VIT C/BIOTIN 1 TAB TABLET PO SCH (08:30)
--- NOTE | 2022-03-30 09:00 | NUR ---
ICU/RN DUE MEDS ARE GIVEN ORDERED.PT IS NOT PASS SWALLOW EVALUATION. ALL PO MEDS HOLD..MD NOTIFIED.
[2022-03-30] MEDS ORDERED: POTASSIUM CHLORIDE 20 MEQ POWDER PACKET PO SCH (10:00)
[2022-03-30] MEDS ORDERED: JEVITY 1.2 CAL 1,000 ML BOTTLE GT PRN ×2 (11:00)
--- NOTE | 2022-03-30 11:30 | NUR ---
ICU/RN RIGHT NG TUBE INSERTED ORDERED.OK TO START TUBE FEEDING.CHEST X-RAY ORDERED .
[2022-03-30] MEDS: DOPamine 400MG/D5W 250ML RTU 250 ML IV PRN (15:46)
--- NOTE | 2022-03-30 18:00 | NUR ---
ICU/RN PM CARE PROVIDED.DUE MEDS ARE GIVEN ORDERED.PT HAS NG TUBE FEEDING.NO RESIDUAL NOTED.REPOSITION FOR COMFORT.CONTINUE MONITORING.
--- NOTE | 2022-03-30 19:30 | NUR ---
SCOURER NOTE PATIENT ASLEEP ON THE BED A&OX0. ALL VSS. PATIENT SATTING AT 100% ON 3L NC. SB. DIET JEVITY 1.2 @30 R NG TUBE. IV FLACO ML. DRIP DOPAMINE 8MCG NS 10MLS/HR. ALL SAFETY FALL PRECAUTIONS IN PLACE, BED IN LOWEST POSITION, BED LOCK ON, BED ALARM ON, SIDE RAILS UP, CALL LIGHT WITHIN REACH. WILL CONTINUE TO MONITOR.
[2022-03-31] VITALS (75 sets, daily range): BP systolic 65–146; BP diastolic 33–70
[2022-03-31] MEDS: IPRATROPIUM/ALBUTEROL INHALER IH SCH ×4 (00:16→18:00)
[2022-03-31] MEDS: PIPERACILLIN /TAZOBACTAM 3.375 G in IV D5W 100 ML IV SCH ×3 (05:10→21:08)
[2022-03-31] MEDS: HYDROCORTISONE SOD SUCCINATE 100 MG/2 ML VIAL IV SCH ×3 (05:11→21:08)
[2022-03-31 05:18] LABS: BASOPHILS % (AUTO) 0.1 % (0.0-2.0); HEMATOCRIT 38 % (39-51); HEMOGLOBIN 13.1 g/dL (13.5-17.5); LYMPHOCYTES # (AUTO) 0.3 K/uL (0.8-4.8); MEAN CORPUSCULAR HGB CONC 35 g/dl (31.0-36.0); MEAN CORPUSCULAR VOLUME 96 fL (80-96); MONOCYTES # (AUTO) 0.3 K/uL (0.1-1.30); MONOCYTES % (AUTO) 3.3 % (2.0-12.0); NEUTROPHILS # (AUTO) 7.8 K/uL (1.8-8.9); NEUTROPHILS % (AUTO) 93.6 % (43.0-81.0); PLATELET COUNT (AUTO) 125 K/uL (150-450); RED BLOOD CELL COUNT(AUTO) 3.95 MIL/uL (4.5-6.0); WHITE BLOOD COUNT (AUTO) 8.4 K/uL (4.3-11.0)
[2022-03-31 05:37] LABS: ALANINE AMINOTRANSFERASE 35 U/L (12-78); ALBUMIN 2.1 g/dL (3.4-5.0); ALKALINE PHOSPHATASE 57 U/L (46-116); ASPARTATE AMINOTRANSFERASE 45 U/L (15-37); BILIRUBIN,TOTAL 0.5 mg/dL (0.2-1.0); CALCIUM, SERUM 8.1 mg/dL (8.5-10.1); CARBON DIOXIDE 32 mmol/L (21-32); CHLORIDE 102 mmol/L (98-107); CREATININE 0.8 mg/dL (0.6-1.3); GLUCOSE 168 mg/dL (74-106); MAGNESIUM 2.2 mg/dL (1.8-2.4); POTASSIUM 3.7 mmol/L (3.5-5.1); SODIUM SERUM 140 mmol/L (136-145); TOTAL PROTEIN, SERUM 6.7 g/dL (6.4-8.2); UREA NITROGEN, BLOOD 16 mg/dL (7-18)
--- NOTE | 2022-03-31 07:15 | NUR ---
DITCH WORKER closing NOTE PATIENT ASLEEP ON THE BED A&OX0. ALL VSS. PATIENT SATTING AT 100% ON 3L NC. SB. DIET JEVITY 1.2 @40 R NG TUBE. IV FLACO ML. DRIP DOPAMINE 8MCG NS 10MLS/HR. ALL SAFETY FALL PRECAUTIONS IN PLACE, BED IN LOWEST POSITION, BED LOCK ON, BED ALARM ON, SIDE RAILS UP, CALL LIGHT WITHIN REACH. ALL VSS, CARE ENDORSED TO DAY SHIFT.
--- NOTE | 2022-03-31 08:00 | NUR ---
RN NOTES PT FOUND SEMI FOWLERS DISPLAYING NO S/S OF DISTRESS, FLACC = 0 AND BREATHING IS EVEN AND UNLABORED ON 5L O2 NC. R UA ML IS PATIENT AND INTACT. NO RESIDUAL MEASURED VIA NGT, TUBE FEEDING INCREASED TO REACH GOAL. BILATERAL SOFT WRISTS APPLIED, PULSES PALPATED BILATERALLY AND CAP REFILL < 3 SECONDS BILATERALLY. MOSES CATH RESERVOIR BELOW PATIENT DRAINING BY GRAVITY. RN WILL CONTINUE CARE PLAN AND ANTICIPATE NEEDS. SAFETY MEASURES IN PLACE, BED LOCKED AND IN LOWEST POSITION, SIDE RAILS UPX3, CALL LIGHT WITHIN REACH, BED ALARM ARMED.
[2022-03-31] MEDS: QUETIAPINE FUMARATE 25 MG TABLET PO SCH (08:10)
[2022-03-31] MEDS: MEMANTINE HCL 5 MG TABLET PO SCH (08:10)
[2022-03-31] MEDS: VIT B CMPLX 3/FA/VIT C/BIOTIN 1 TAB TABLET PO SCH (08:10)
[2022-03-31] MEDS: HEPARIN SODIUM, PORCINE 5000 UNITS/1 ML VIAL SQ SCH ×2 (08:11→21:12)
[2022-03-31] MEDS: DOPamine 400MG/D5W 250ML RTU 250 ML IV PRN ×2 (08:42→21:19)
[2022-03-31 10:53] LABS: ABG BASE EXCESS 5.2 mmol/L; ABG OXYGEN SATURATION 80.5 % (92.0-98.5); ABG PCO2 41.7 mmHg (35.0-45.0); ABG PH 7.466 (7.350-7.450); AaDO2 338.9 mmHg; COHb 0.3 % (0.5-1.5); MetHb 0.3 % (0.0-1.5); SITE, ABG Right Brachial; VENT MODE, BG simple mask
--- NOTE | 2022-03-31 11:13 | NUR ---
pt. placed into high flow nasal cannula @ 40 flow / 100% fio2 due to 88%- 90% spo2, 43 PaO2, and increased work of breathing. rn aware. Addendum: 03/31/22 at 1135 by JOSÉ ANTONIO THOMAS RT Amended: Links added.
[2022-03-31] MEDS: JEVITY 1.2 CAL 1,000 ML BOTTLE GT PRN (13:09)
--- NOTE | 2022-03-31 19:20 | NUR ---
RN NOTES PT FOUND SEMI FOWLERS DISPLAYING NO S/S OF DISTRESS, FLACC = 0 AND BREATHING IS EVEN AND UNLABORED ON HIGH FLOW 40L 100% FIO2. R UA ML IS PATIENT AND INTACT. NO RESIDUAL MEASURED VIA NGT, TUBE FEEDING REACHED GOAL. BILATERAL SOFT WRISTS APPLIED, PULSES PALPATED BILATERALLY AND CAP REFILL < 3 SECONDS BILATERALLY. MOSES CATH RESERVOIR BELOW PATIENT DRAINING BY GRAVITY. SBAR AND REPORT GIVEN TO BEHAVIOR INTERVENTIONIST RN, ALL QUESTIONS ANSWERED. SAFETY MEASURES IN PLACE, BED LOCKED AND IN LOWEST POSITION, SIDE RAILS UPX3, CALL LIGHT WITHIN REACH, BED ALARM ARMED. PT ENDORSED FOR KAYLEEN.
--- NOTE | 2022-03-31 19:46 | NUR ---
RN OPENING NOTES RECEIVED CARE OF PATIENT FROM AM NURSE, PATIENT IN BED, ASLEEP, WAKES UP TO TOUCH ONLY, CONFUSED, NON-INTERACTIVE. PATIENT ON HIGH FLOW O2 VIA NC AT 40L 100% FIO2. PATIENT'S TELE MONITOR READING SINUS RHYTHM WITH HR OF 63, NO DISTRESS NOTED ON PATIENT. FLACO MIDLINE INTACT RUNNING DOPAMINE DRIP AT 12 MCG/KG/MIN. MOSES CATH IN PACE, PATENT. NGT IN PLACE, NO RESIDUAL NOTED, AUSCULTATED FOR POSITIVE PLACEMENT. BILATERAL SOFT WRIST RESTRAINTS IN PLACE, NO CIRCULATORY OR SKIN COMPROMISE. SAFETY MEASURES PUT IN PLACE. WILL CARRY OUT PLAN OF CARE.
--- NOTE | 2022-03-31 20:14 | NUR ---
RN NOTES PATIENT IS CONFUSED, DOES NOT FOLLOW COMMANDS, HISTORY OF ADVANCE DEMENTIA, PATIENT UNABLE TO USE INHALER.
[2022-04-01] VITALS (96 sets, daily range): BP systolic 84–142; BP diastolic 40–73
--- NOTE | 2022-04-01 00:14 | NUR ---
RN NOTES PATIENT REMAINS CONFUSED, NON-INTERRACTIVE, UNABLE TO FOLLOW COMMANDS. PATIENT UNABLE TO USE INHALER.
[2022-04-01] MEDS: HYDROCORTISONE SOD SUCCINATE 100 MG/2 ML VIAL IV SCH ×3 (05:32→21:08)
[2022-04-01] MEDS: PIPERACILLIN /TAZOBACTAM 3.375 G in IV D5W 100 ML IV SCH ×3 (05:32→21:08)
[2022-04-01] MEDS: IPRATROPIUM/ALBUTEROL INHALER IH SCH ×4 (06:00→18:19)
--- NOTE | 2022-04-01 07:14 | NUR ---
RN NOTES ENDORSED CARE OF PATIENT TO AM NURSE, PATIENT SLEEPING, WAKES UP TO TOUCH AND LIGHT PAINFUL STIMULI, PATIENT IS NON-INTERRACTIVE, DOES NOT FOLLOW COMMANDS. PATIENT NEEDS ANTICIPATED AND MET THROUGHOUT SHIFT. PLAN OF CARE REVIEWED AND CARRIED OUT. SAFETY MEASURES KEPT IN PLACE. ENDORSED CARE OF PATIENT TO AM NURSE FOR KAYLEEN.
--- NOTE | 2022-04-01 07:25 | NUR ---
RN NOTES PT FOUND SEMI FOWLERS DISPLAYING NO S/S OF DISTRESS, FLACC = 0 AND BREATHING IS EVEN AND UNLABORED ON HIGH FLOW NC, RT CURRENTLY TENDING TO PT. R UA ML IS PATIENT AND INTACT. NO RESIDUAL MEASURED VIA NGT, TUBE FEEDING INCREASED TO REACH GOAL. BILATERAL SOFT WRISTS APPLIED, PULSES PALPATED BILATERALLY AND CAP REFILL < 3 SECONDS BILATERALLY. MOSES CATH RESERVOIR BELOW PATIENT DRAINING BY GRAVITY. RN WILL CONTINUE CARE PLAN AND ANTICIPATE NEEDS. SAFETY MEASURES IN PLACE, BED LOCKED AND IN LOWEST POSITION, SIDE RAILS UPX3, CALL LIGHT WITHIN REACH, BED ALARM ARMED.
--- NOTE | 2022-04-01 07:39 | NUR ---
RT PATIENT REC'D ON HFNC 40L 100% spo2 93%. PATIENT AWAKE, WEAK, NOT COMPLETELY RESPONDING TO COMMANDS. Addendum: 04/01/22 at 0749 by MARYURI JALLOH RT Amended: Links added.
[2022-04-01] MEDS: QUETIAPINE FUMARATE 25 MG TABLET PO SCH (08:22)
[2022-04-01] MEDS: MEMANTINE HCL 5 MG TABLET PO SCH (08:22)
[2022-04-01] MEDS: VIT B CMPLX 3/FA/VIT C/BIOTIN 1 TAB TABLET PO SCH (08:22)
[2022-04-01] MEDS: HEPARIN SODIUM, PORCINE 5000 UNITS/1 ML VIAL SQ SCH ×3 (08:23→17:23)
[2022-04-01] MEDS: IV NS 0.9% 1,000 ML IV PRN ×2 (09:41→21:56)
--- NOTE | 2022-04-01 10:30 | NUR ---
NURSING NOTES HEPARIN 5,000 UNITS WAS NOT GIVEN AT 1030. ORDER WAS CANCELED AND RENEWED, 5000 UNITS GIVEN SQ AT 0900.
[2022-04-01] MEDS: DOPamine 400MG/D5W 250ML RTU 250 ML IV PRN ×2 (10:46→21:49)
[2022-04-01] MEDS: JEVITY 1.2 CAL 1,000 ML BOTTLE GT PRN (12:03)
--- NOTE | 2022-04-01 19:05 | NUR ---
RN NOTES PT FOUND SEMI FOWLERS DISPLAYING NO S/S OF DISTRESS, FLACC = 0 AND BREATHING IS EVEN AND UNLABORED ON HIGH FLOW NC. R UA ML IS PATIENT AND INTACT. BILATERAL SOFT WRISTS APPLIED, PULSES PALPATED BILATERALLY AND CAP REFILL < 3 SECONDS BILATERALLY. MOSES CATH RESERVOIR BELOW PATIENT DRAINING BY GRAVITY. SBAR AND REPORT GIVEN TO PROFESSOR OF LEGAL STUDIES RN, ALL QUESTIONS ANSWERED. SAFETY MEASURES IN PLACE, BED LOCKED AND IN LOWEST POSITION, SIDE RAILS UPX3, CALL LIGHT WITHIN REACH, BED ALARM ARMED. PT ENDORSED FOR KAYLEEN
--- NOTE | 2022-04-01 19:19 | NUR ---
RN OPENING NOTES RECEIVED CARE OF PATIENT, PATIENT IS SLEEPING, WAKES UP TO TOUCH AND PAINFUL STIMILI, CONFUSED. PATIENT ON HIGH FLOW O2 VIA NC AT 40L, 60% FIO2, BREATHING EVENLY AND UNLABORED, O2 SAT 98%. FLACO MIDLINE RUNNING WITH DOPAMINE AT 13MCG/KG/MIN. PLAN OF CARE REVIEWED, SAFETY MEASURES IMPLEMENTED. WILL CARRY OUT PLAN OF CARE.
[2022-04-02] VITALS (99 sets, daily range): BP systolic 57–223; BP diastolic 25–188
[2022-04-02] MEDS: IPRATROPIUM/ALBUTEROL INHALER IH SCH ×4 (00:05→18:12)
[2022-04-02 04:19] LABS: HEMATOCRIT 37 % (39-51); HEMOGLOBIN 12.5 g/dL (13.5-17.5); LYMPHOCYTES # (AUTO) 0.2 K/uL (0.8-4.8); LYMPHOCYTES % (AUTO) 1.7 % (20.0-44.0); MEAN CORPUSCULAR HGB CONC 34 g/dl (31.0-36.0); MEAN CORPUSCULAR VOLUME 96 fL (80-96); MONOCYTES # (AUTO) 0.3 K/uL (0.1-1.30); MONOCYTES % (AUTO) 2.7 % (2.0-12.0); NEUTROPHILS # (AUTO) 9.3 K/uL (1.8-8.9); NEUTROPHILS % (AUTO) 95.6 % (43.0-81.0); PLATELET COUNT (AUTO) 136 K/uL (150-450); RED BLOOD CELL COUNT(AUTO) 3.89 MIL/uL (4.5-6.0); WHITE BLOOD COUNT (AUTO) 9.7 K/uL (4.3-11.0)
[2022-04-02] MEDS: HYDROCORTISONE SOD SUCCINATE 100 MG/2 ML VIAL IV SCH ×3 (04:22→21:45)
[2022-04-02 04:30] LABS: CALCIUM, SERUM 7.5 mg/dL (8.5-10.1); CARBON DIOXIDE 35 mmol/L (21-32); CHLORIDE 105 mmol/L (98-107); CREATININE 0.7 mg/dL (0.6-1.3); GLUCOSE 211 mg/dL (74-106); MAGNESIUM 2.2 mg/dL (1.8-2.4); PHOSPHORUS 1.3 mg/dL (2.5-4.9); SODIUM SERUM 141 mmol/L (136-145); UREA NITROGEN, BLOOD 15 mg/dL (7-18)
[2022-04-02 04:57] LABS: POTASSIUM 2.8 mmol/L (3.5-5.1)
[2022-04-02] MEDS: PIPERACILLIN /TAZOBACTAM 3.375 G in IV D5W 100 ML IV SCH ×3 (05:37→21:44)
[2022-04-02] MEDS: JEVITY 1.2 CAL 1,000 ML BOTTLE GT PRN (06:15)
[2022-04-02] MEDS: POTASSIUM CL. PREMIX PERIPHER. 50 ML IV SCH ×6 (06:29→11:02)
[2022-04-02] MEDS ORDERED: POTASSIUM PHOSPHATE MM 15 MMOL in IV NS 0.9% 250 ML IV SCH (08:00)
--- NOTE | 2022-04-02 08:00 | NUR ---
rn notes PATIENT ON HF , RT WITH THE PATIENT AND SETTING CHANGED 30L/65%. PATIENT TOLERAING NGT FEEDING WELL NO RESIDUAL, RUNNING JEVITY 1.2 @50ML/HR. NOTED BLEEDING FROM MOSES CATH, LAB VALUES CHECKED. IV ACCESS ON FLACO MIDLINE INFUSING DOPAMIN @13MCG/KG/MIN, NS@100ML, REPLACING KCL AT THIS TIME 60MEQ. KEEP HOB ELEVATED FOR ASPIRATION PRECAUTION, ASSIST TURN AND REPOSTION Q 2 HR. SAFETY MEASURES KEPT IN PLACE. RECHECKED RESTRAIN Q 2 HR. WILL FOLLOW UP.
[2022-04-02] MEDS: MEMANTINE HCL 5 MG TABLET PO SCH (08:02)
[2022-04-02] MEDS: QUETIAPINE FUMARATE 25 MG TABLET PO SCH (08:03)
[2022-04-02] MEDS: HEPARIN SODIUM, PORCINE 5000 UNITS/1 ML VIAL SQ SCH ×3 (08:03→17:00)
[2022-04-02] MEDS: VIT B CMPLX 3/FA/VIT C/BIOTIN 1 TAB TABLET PO SCH (08:37)
[2022-04-02] MEDS: DOPamine 400MG/D5W 250ML RTU 250 ML IV PRN ×2 (11:13→23:17)
--- NOTE | 2022-04-02 18:32 | NUR ---
RN N NOTES NOTIFIED LACHO GONZALEZ ABOUT BLEEDING, AND OK HELD HEPARIN SQ.
--- NOTE | 2022-04-02 18:32 | NUR ---
RN NOTES PM CARE DONE, DUE MEDICATION ADMINISTERED, SUCTION, MOUTH CARE DONE. ASSIST TURN AND REPOSTION Q 2 HR. TITRATED DOPAMIN PER PROTOCOL INFUSING 11MCG/KG/HR. ASSIST TURN AND REPOSTION Q 2 HR. MOSES OUTPUT WAS 1100ML, STIL NOTED BLOOD IN THE URINE , HELD HEPARING DRIP. ENDORSED ONCOMING NURSE KAYLEEN.
--- NOTE | 2022-04-02 19:55 | NUR ---
PATIENT REC'D ON HFNC 30L 65% SPO2 95%. PT IS SLEEPING AND NO DISTRESS NOTED AT THIS TIME
--- NOTE | 2022-04-02 20:00 | NUR ---
RN NOTE RECEIVED PT SLEEPIMG, AROUSES EASILY TO VERBAL STIMULI. ON HIGH FLOW NC AT 30 FIO2 65%. NOT IN ANY DISTRESS. NGT IN PLACE AND PATENT. NO RESIDUALS NOTED. ON TUBE FEEDING JEVITY AT 50ML/HR. ON DOPAMINE DRIP AT 11MCG/KG/MIN. IV INTACT AND PATENT. AFEBRILE. ISOLATION PRECAUTION OBSERVED. WILL CONTINUE TO MONITOR.
[2022-04-03] VITALS (98 sets, daily range): BP systolic 52–135; BP diastolic 26–67
[2022-04-03] MEDS: IPRATROPIUM/ALBUTEROL INHALER IH SCH ×5 (00:30→23:34)
[2022-04-03 04:12] LABS: BASOPHILS # (AUTO) 0.1 K/uL (0.0-0.2); BASOPHILS % (AUTO) 0.6 % (0.0-2.0); HEMATOCRIT 34 % (39-51); HEMOGLOBIN 11.7 g/dL (13.5-17.5); LYMPHOCYTES # (AUTO) 0.1 K/uL (0.8-4.8); LYMPHOCYTES % (AUTO) 1.4 % (20.0-44.0); MEAN CORPUSCULAR HGB CONC 34 g/dl (31.0-36.0); MEAN CORPUSCULAR VOLUME 95 fL (80-96); MONOCYTES # (AUTO) 0.3 K/uL (0.1-1.30); MONOCYTES % (AUTO) 3.5 % (2.0-12.0); NEUTROPHILS # (AUTO) 8.5 K/uL (1.8-8.9); NEUTROPHILS % (AUTO) 94.5 % (43.0-81.0); PLATELET COUNT (AUTO) 142 K/uL (150-450); RED BLOOD CELL COUNT(AUTO) 3.59 MIL/uL (4.5-6.0)
[2022-04-03 04:44] LABS: CALCIUM, SERUM 7.4 mg/dL (8.5-10.1); CARBON DIOXIDE 34 mmol/L (21-32); CHLORIDE 106 mmol/L (98-107); CREATININE 0.7 mg/dL (0.6-1.3); GLUCOSE 204 mg/dL (74-106); MAGNESIUM 2.1 mg/dL (1.8-2.4); PHOSPHORUS 1.4 mg/dL (2.5-4.9); SODIUM SERUM 141 mmol/L (136-145); UREA NITROGEN, BLOOD 16 mg/dL (7-18)
[2022-04-03] MEDS: HYDROCORTISONE SOD SUCCINATE 100 MG/2 ML VIAL IV SCH ×3 (04:59→21:06)
[2022-04-03] MEDS: JEVITY 1.2 CAL 1,000 ML BOTTLE GT PRN (05:00)
[2022-04-03] MEDS: PIPERACILLIN /TAZOBACTAM 3.375 G in IV D5W 100 ML IV SCH ×3 (05:00→21:05)
--- NOTE | 2022-04-03 07:06 | NUR ---
RN NOTE PT TOLERATING HIGHFLOW O2 30L 65%. NOT IN ANY DISTRESS. GT FEEDING TOLERATES WELL, NO RESIDUALS NOTED. KEPT HOB ELEVATED. MOSES INPLACE DRAINING YVES COLORED URINE. NO SIGNS OF DISCOMFORT NOTED. CONTINUE WITH DOPAMINE DRIP AT 11MCG/KG/MIN, INFUSING WELL. WILL ENDORSE TO NEXT SHIFT NURSE FOR KAYLEEN.
--- NOTE | 2022-04-03 08:00 | NUR ---
rn notes PT on HIGHFLOW O2 30L 65%. RT WITH PATIENT AND TITRATED TO 60% HF. NOT IN ANY DISTRESS. GT FEEDING TOLERATES WELL, NO RESIDUALS NOTED. KEPT HOB ELEVATED. MOSES INPLACE DRAINING VIA GRAVITY. CONTINUE WITH DOPAMINE DRIP AT 11MCG/KG/MIN, INFUSING WELL.
[2022-04-03] MEDS: POTASSIUM PHOSPHATE MM 15 MMOL in IV NS 0.9% 250 ML IV SCH ×2 (09:38→12:15)
[2022-04-03] MEDS: QUETIAPINE FUMARATE 25 MG TABLET PO SCH (09:38)
[2022-04-03] MEDS: MEMANTINE HCL 5 MG TABLET PO SCH (09:38)
[2022-04-03] MEDS: VIT B CMPLX 3/FA/VIT C/BIOTIN 1 TAB TABLET PO SCH (09:39)
[2022-04-03] MEDS: HEPARIN SODIUM, PORCINE 5000 UNITS/1 ML VIAL SQ SCH ×2 (10:20→17:44)
[2022-04-03] MEDS: DOPamine 400MG/D5W 250ML RTU 250 ML IV PRN (11:39)
[2022-04-03] MEDS: IV NS 0.9% 250 ML IV PRN (13:00)
--- NOTE | 2022-04-03 18:00 | NUR ---
rn notes pm care done, suction, mouth care, due medication administered, titrated dopamin 9 mcg/kg/min per protocol, assist turn and repostion q 2 hr. restrain rechecked for circulation. sanz draining 780 ml yellow output. endorsed oncoming nurse danny.
--- NOTE | 2022-04-03 19:25 | NUR ---
ICU/PLASTER MACHINE TENDER RECIEVED REPORT FROM DAY NURSE. SEE FLOWSHEET FOR ASSESSMENT. PT HAS IV DOPA WHICH IS DOCUMENTED ON IV SPREAD SHEET. WILL CONTINUE TO MONITOR THIS PT.
--- NOTE | 2022-04-03 19:45 | NUR ---
ICU/DIGITAL CONTENT MARKETING MANAGER FOUND N/G TUBE SLIGHTLY OUT AND STILL RUNNING AT 50ML. PUSHED BACK AND SECURE N/G IN PLACE RESIDUALS AT 15ML. WILL CONTINUE TO MONITOR THIS PT AND HIS RESIDUALS.
--- NOTE | 2022-04-03 22:45 | NUR ---
ICU/FILTER OPERATOR PT WAS DEEP SUCTIONED, FOR SATURATION WAS 88-90%. WILL CONTINUE TO MONITOR THIS PT AND HIS SATURATION.
[2022-04-04] VITALS (96 sets, daily range): BP systolic 84–129; BP diastolic 43–82
--- NOTE | 2022-04-04 00:15 | NUR ---
ICU/ABA THERAPIST PT'S SATURATION CAME UP TO 99% FROM 88% EARLIER. WILL CONTINUE TO MONITOR THIS PT AND HIS SATURATION .
--- NOTE | 2022-04-04 03:00 | NUR ---
ICU/FIELD CANE SCALER HELPER PT'S SATURATION IS STABLE AT 99-98%. WILL CONTINUE TO MONITOR THIS PT AND HIS SATURATION.
[2022-04-04] MEDS: PIPERACILLIN /TAZOBACTAM 3.375 G in IV D5W 100 ML IV SCH ×3 (04:58→21:29)
[2022-04-04] MEDS: HYDROCORTISONE SOD SUCCINATE 100 MG/2 ML VIAL IV SCH ×3 (04:58→21:29)
[2022-04-04] MEDS: DOPamine 400MG/D5W 250ML RTU 250 ML IV PRN ×3 (04:59→21:59)
[2022-04-04 05:05] LABS: EOSINOPHILS % (AUTO) 0.1 % (0.0-6.0); HEMATOCRIT 33 % (39-51); HEMOGLOBIN 11.4 g/dL (13.5-17.5); LYMPHOCYTES # (AUTO) 0.3 K/uL (0.8-4.8); LYMPHOCYTES % (AUTO) 3.6 % (20.0-44.0); MEAN CORPUSCULAR HGB CONC 35 g/dl (31.0-36.0); MEAN CORPUSCULAR VOLUME 96 fL (80-96); MONOCYTES # (AUTO) 0.3 K/uL (0.1-1.30); MONOCYTES % (AUTO) 2.6 % (2.0-12.0); NEUTROPHILS # (AUTO) 9.1 K/uL (1.8-8.9); NEUTROPHILS % (AUTO) 93.7 % (43.0-81.0); PLATELET COUNT (AUTO) 151 K/uL (150-450); WHITE BLOOD COUNT (AUTO) 9.7 K/uL (4.3-11.0)
[2022-04-04 05:20] LABS: CALCIUM, SERUM 7.6 mg/dL (8.5-10.1); CARBON DIOXIDE 36 mmol/L (21-32); CHLORIDE 105 mmol/L (98-107); CREATININE 0.8 mg/dL (0.6-1.3); GLUCOSE 140 mg/dL (74-106); PHOSPHORUS 2.6 mg/dL (2.5-4.9); POTASSIUM 3.2 mmol/L (3.5-5.1); SODIUM SERUM 144 mmol/L (136-145); UREA NITROGEN, BLOOD 19 mg/dL (7-18)
[2022-04-04] MEDS: IPRATROPIUM/ALBUTEROL INHALER IH SCH ×3 (05:53→18:17)
--- NOTE | 2022-04-04 07:30 | NUR ---
OPENING NOTE: REPORT RECEIVED FROM TORI MASON. LABS AND ORDERS REVIEWED DURING REPORT. PT IS CURRENTLY ON HI FLOW NASAL CANNULA 60% AT 30L. TUBE FEEDING INFUSING PER MD ORDERS WITHOUT DIFFICULTY. PER REPORT NT SUCTION PRN. DOPAMINE GTT INFUSING PER MD ORDERS TO KEEP SBP >90, CURRENTLY INFUSING AT 9MCG/KG/MIN. PT CHECKED ON HOURLY AND PRN BY NURSING STAFF.
[2022-04-04] MEDS: JEVITY 1.2 CAL 1,000 ML BOTTLE GT PRN (08:27)
[2022-04-04] MEDS ORDERED: POTASSIUM CHLORIDE 20 MEQ TAB.PRT.SR PO SCH (09:00)
[2022-04-04] MEDS ORDERED: POTASSIUM CHLORIDE 20 MEQ POWDER PACKET NG ONE (09:00)
[2022-04-04] MEDS: QUETIAPINE FUMARATE 25 MG TABLET PO SCH (09:16)
[2022-04-04] MEDS: MEMANTINE HCL 5 MG TABLET PO SCH (09:16)
[2022-04-04] MEDS: VIT B CMPLX 3/FA/VIT C/BIOTIN 1 TAB TABLET PO SCH (09:17)
[2022-04-04] MEDS: HEPARIN SODIUM, PORCINE 5000 UNITS/1 ML VIAL SQ SCH ×2 (09:18→18:20)
[2022-04-04] MEDS: IV NS 0.9% 250 ML IV PRN (18:18)
--- NOTE | 2022-04-04 19:07 | NUR ---
END OF SHIFT NOTE: PT HAD A FAIRLY UNEVENTFUL SHIFT. PT WAS PUT ON 10L SIMPLE MASK AT 0915 THIS AM. TUBE FEEDING INFUSING PER MD ORDERS WITHOUT DIFFICULTY. COVID ANTIGEN TEST SWABBED AND SENT TO LAB PER MD ORDERS, RESULTS PENDING. DOPAMINE CONTINUES TO INFUSE AT 9MCG/KG/MIN, UNABLE TO TITRATE TODAY. PT CHECKED ON HOURLY AND PRN BY NURSING STAFF.
--- NOTE | 2022-04-04 19:42 | NUR ---
RT NOTE PT RECEIVED ON SIMPLE MASK @ 10 LPM. PT ASLEEP AT THIS TIME. SPO2 @ 92%, HR 63, RR 20. HIGH FLOW STANDBY. NO RESPIRATORY DISTRESS NOTED AT THIS TIME. WILL CONTINUE TO MONITOR CLOSELY. Addendum: 04/04/22 at 1944 by FAREED REARDON RT Amended: Links added.
--- NOTE | 2022-04-04 19:50 | NUR ---
ICU/AUDIO/VIDEO ENGINEER ID CHERI [id number] ASKED FOR A RAPID BE SENT, DAY SHIFT NURSE COLLECTED AND SENT TO LAB. LAB CALLED WITH A POSITIVE RAPID COVID TEST.
--- NOTE | 2022-04-04 20:30 | NUR ---
ICU/SCIENTIFIC SPECIALIST N/G SUCTIONING WAS DONE, PT'S SATURATION WAS IN THE HIGH 80'S. PT WAS TURN AND REPOSITION FOR COMFORT AND CARE. WILL MONITOR THIS PT.
[2022-04-05] VITALS (96 sets, daily range): BP systolic 58–137; BP diastolic 32–93
[2022-04-05] MEDS: IPRATROPIUM/ALBUTEROL INHALER IH SCH ×4 (00:34→17:37)
--- NOTE | 2022-04-05 02:00 | NUR ---
ICU/SENIOR SOUS CHEF WHILE GIVING PT AM CARE, PT WAS DEEP SUCTIONED. PT WAS ABLE TO COUGH THICK GREEN SPUTUM. SATURATION IS UP FROM 90 TO NOW 99%. WILL CONTINUE TO MONITOR THIS PT AND HIS SATURATION.
[2022-04-05] MEDS: JEVITY 1.2 CAL 1,000 ML BOTTLE GT PRN (04:18)
[2022-04-05] MEDS: PIPERACILLIN /TAZOBACTAM 3.375 G in IV D5W 100 ML IV SCH ×3 (05:11→21:14)
[2022-04-05] MEDS: HYDROCORTISONE SOD SUCCINATE 100 MG/2 ML VIAL IV SCH ×3 (05:11→21:14)
[2022-04-05] MEDS: POLYETHYLENE GLYCOL 3350 17 GM POWD.PACK PO PRN ×2 (05:11→17:35)
[2022-04-05 05:14] LABS: BASOPHILS % (AUTO) 0.1 % (0.0-2.0); HEMATOCRIT 34 % (39-51); HEMOGLOBIN 11.6 g/dL (13.5-17.5); LYMPHOCYTES # (AUTO) 0.1 K/uL (0.8-4.8); LYMPHOCYTES % (AUTO) 1.4 % (20.0-44.0); MEAN CORPUSCULAR HGB CONC 34 g/dl (31.0-36.0); MEAN CORPUSCULAR VOLUME 97 fL (80-96); MONOCYTES # (AUTO) 0.3 K/uL (0.1-1.30); MONOCYTES % (AUTO) 3.1 % (2.0-12.0); NEUTROPHILS % (AUTO) 95.4 % (43.0-81.0); PLATELET COUNT (AUTO) 174 K/uL (150-450); RED BLOOD CELL COUNT(AUTO) 3.54 MIL/uL (4.5-6.0); WHITE BLOOD COUNT (AUTO) 9.4 K/uL (4.3-11.0)
--- NOTE | 2022-04-05 05:30 | NUR ---
ICU/TUBER MACHINE CUTTER PT WAS DEEP SUCTIONED BY RT, WAS ABLE TO GET OUT THICK CHE & GREEN SECRETIONS FROM PT. SATURATION CAME UP TO 100% ON 10 LITERS SIMPLE MASK. WILL CONTINUE TO MONITOR THIS PT.
--- NOTE | 2022-04-05 05:30 | NUR ---
ICU/INTERNET SOURCER PT WAS TURNED AND REPOSITIONED FOUND PT WITH HARD ROUND STOOL. GAVE MIRALAX TO HELP WITH THE CONSTIPATION. WILL CONTINUE TO MONITOR THIS PT AND HIS BM
[2022-04-05 05:43] LABS: CALCIUM, SERUM 7.5 mg/dL (8.5-10.1); CARBON DIOXIDE 35 mmol/L (21-32); CHLORIDE 109 mmol/L (98-107); CREATININE 0.8 mg/dL (0.6-1.3); GLUCOSE 180 mg/dL (74-106); MAGNESIUM 2.3 mg/dL (1.8-2.4); PHOSPHORUS 2.8 mg/dL (2.5-4.9); POTASSIUM 3.9 mmol/L (3.5-5.1); SODIUM SERUM 146 mmol/L (136-145); UREA NITROGEN, BLOOD 21 mg/dL (7-18)
--- NOTE | 2022-04-05 07:30 | NUR ---
OPENING NOTE: RECEIVED REPORT FROM TORI MASON. LABS AND ORDERS REVIEWED DURING REPORT. NO SIGNIFICANT EVENTS OVERNIGHT PER REPORT EXCEPT PT WAS IMPACTED WITH STOOL, MIRALAX GIVEN PER REPORT, WILL CONTINUE TO MONITOR STOOL OUTPUT. PT CONTINUES TO BE DOPAMINE GTT AT 9MCG/KG/MIN, WILL TITRATE PER PROTOCOL IF POSSIBLE. PT CHECKED ON HOURLY AND PRN BY NURSING STAFF.
[2022-04-05 08:23] LABS: LYMPHOCYTES % (MANUAL) 1 % (16-48); MONOCYTES % (MANUAL) 3 % (0-11.0); NEUTROPHILS % (MANUAL) 96 (42-76)
[2022-04-05] MEDS: IV NS 0.9% 1,000 ML IV PRN ×2 (10:06→18:36)
[2022-04-05] MEDS: HEPARIN SODIUM, PORCINE 5000 UNITS/1 ML VIAL SQ SCH ×2 (10:08→17:35)
[2022-04-05] MEDS: MEMANTINE HCL 5 MG TABLET PO SCH (10:10)
[2022-04-05] MEDS: QUETIAPINE FUMARATE 25 MG TABLET PO SCH (10:10)
[2022-04-05] MEDS: VIT B CMPLX 3/FA/VIT C/BIOTIN 1 TAB TABLET PO SCH (10:10)
[2022-04-05] MEDS: DOPamine 400MG/D5W 250ML RTU 250 ML IV PRN (14:11)
[2022-04-05] MEDS: DOCUSATE SODIUM LIQ 100 MG/10 ML UDC NG SCH (17:35)
--- NOTE | 2022-04-05 19:22 | NUR ---
END OF SHIFT NOTE: DOPAMINE GTT INFUSING AT 8MCG/KG/MIN. PT HELPED WITH IMPACTED BM, HAD VERY HARD BROWN BM. STOOL SOFTENER GIVEN. PT NT SUCTIONED X1 THIS SHIFT. PT CHECKED ON HOURLY AND PRN BY NURSING STAFF.
[2022-04-06] VITALS (95 sets, daily range): BP systolic 41–161; BP diastolic 24–90
[2022-04-06] MEDS: IPRATROPIUM/ALBUTEROL INHALER IH SCH ×4 (00:27→17:04)
[2022-04-06] MEDS: IV NS 0.9% 1,000 ML IV PRN ×3 (00:57→22:43)
[2022-04-06] MEDS: JEVITY 1.2 CAL 1,000 ML BOTTLE GT PRN (00:57)
[2022-04-06] MEDS: PIPERACILLIN /TAZOBACTAM 3.375 G in IV D5W 100 ML IV SCH ×2 (04:53→12:30)
[2022-04-06] MEDS: HYDROCORTISONE SOD SUCCINATE 100 MG/2 ML VIAL IV SCH ×3 (04:54→21:08)
[2022-04-06 06:14] LABS: BASOPHILS % (AUTO) 0.1 % (0.0-2.0); HEMATOCRIT 32 % (39-51); LYMPHOCYTES # (AUTO) 0.2 K/uL (0.8-4.8); LYMPHOCYTES % (AUTO) 1.8 % (20.0-44.0); MEAN CORPUSCULAR HGB CONC 35 g/dl (31.0-36.0); MEAN CORPUSCULAR VOLUME 96 fL (80-96); MONOCYTES # (AUTO) 0.4 K/uL (0.1-1.30); MONOCYTES % (AUTO) 4.2 % (2.0-12.0); NEUTROPHILS # (AUTO) 8.6 K/uL (1.8-8.9); NEUTROPHILS % (AUTO) 93.9 % (43.0-81.0); PLATELET COUNT (AUTO) 186 K/uL (150-450); RED BLOOD CELL COUNT(AUTO) 3.32 MIL/uL (4.5-6.0); WHITE BLOOD COUNT (AUTO) 9.1 K/uL (4.3-11.0)
[2022-04-06 06:44] LABS: ALBUMIN 1.5 g/dL (3.4-5.0); BILIRUBIN,TOTAL 0.3 mg/dL (0.2-1.0); CALCIUM, SERUM 7.3 mg/dL (8.5-10.1); CREATININE 0.6 mg/dL (0.6-1.3); PHOSPHORUS 2.3 mg/dL (2.5-4.9)
--- NOTE | 2022-04-06 08:00 | NUR ---
RN NOTES RECEIVED ON MASK 10L ON BEDSIDE MONITOR SHOWS 100% NO SOB NOTED, HR 65. LABS AND ORDERS REVIEWED . DUE MEDICATION ADMINISTERED. RECHECKED RESIDUAL, FLASHER WITH FREE WATER 120ML, PATIENT TOLERATING FEEDING WELL. IV ACCESS ON FLACO INTACT INFUSING CONTINUES DOPAMINE AT 8MCG/KG/MIN, AND NS @125 ML/HR INTACT. WILL TITRATE PER PROTOCOL. MOSSE DRAINING VIA GRAVITY.
[2022-04-06] MEDS: DOCUSATE SODIUM LIQ 100 MG/10 ML UDC NG SCH ×2 (08:11→17:03)
[2022-04-06] MEDS: QUETIAPINE FUMARATE 25 MG TABLET PO SCH (08:11)
[2022-04-06] MEDS: MEMANTINE HCL 5 MG TABLET PO SCH (08:11)
[2022-04-06] MEDS: VIT B CMPLX 3/FA/VIT C/BIOTIN 1 TAB TABLET PO SCH (08:11)
[2022-04-06] MEDS: HEPARIN SODIUM, PORCINE 5000 UNITS/1 ML VIAL SQ SCH ×2 (08:22→17:04)
[2022-04-06] MEDS ORDERED: NEUTRA PHOS 1 POWD.PACKET NG ONE (10:00)
[2022-04-06] MEDS: DOPamine 400MG/D5W 250ML RTU 250 ML IV PRN (10:14)
--- NOTE | 2022-04-06 11:00 | NUR ---
RN NOTES TITRATED DOPAMINE @7MCG/KG/MIN AT THIS TIME.
--- NOTE | 2022-04-06 14:50 | NUR ---
RN NOTES TITRATED DOPAMINE @6MCG/KG/MIN . ASSIST TURN AND REPOSTION Q 2 HR, RECHECKED BILATERAL RESTRAIN Q 2 HR. SUCTION, MOUTH CARE DONE.
--- NOTE | 2022-04-06 18:23 | NUR ---
RN NOTES PM CARE DONE, SUCTION, MOUTH CARE, DUE MEDICATION ADMINISTERED, INFUSING DOPAMINE 6 MCG/KG/MIN, AND NS @125 ML/HR. PATIENT HOB ELEVATED FOR ASPIRATION PRECAUTION, URINE OUTPUT WAS 1150ML. ASSIST TURN AND REPOSTION Q 2 HR, RESTRAIN RECHECKED FIR CIRCULATION. TOLERATING FEEDING WELL. ENDORSED ONCOMING NURSE KAYLEEN.
[2022-04-06] MEDS ORDERED: DOPamine 400MG/D5W 250ML RTU 250 ML IV PRN (19:30)
--- NOTE | 2022-04-06 19:30 | NUR ---
RN Note Received patient in bed, awake, and responsive, producing incomprehensible sounds. Breathing even and unlabored. on 6L/min via nasal cannula with o2 saturation of 95 percent via bedside monitor. No sob noted. Noted with non-productive cough. On tele monitoring. Skin is warm and dry to touch. Noted with right nare NGT infusing jevity at 50 cc/hr. no residual noted. HOB elevated 30 degrees. Right upper arm midline infusing NS at 125 cc/hr and dopamine at 6 mcg. Indwelling sanz catheter intact, draining yellow urine by gravity. Bilateral soft wrist restraints in place. Bilateral radial pulses wnl. Patient released from restraints to perform range of motion. Assisted with turning and repositioning. Bed low, in locked position, Call light within reach.
[2022-04-07] VITALS (94 sets, daily range): BP systolic 65–136; BP diastolic 25–82
[2022-04-07] MEDS: IPRATROPIUM/ALBUTEROL INHALER IH SCH ×4 (00:29→17:59)
[2022-04-07] MEDS: JEVITY 1.2 CAL 1,000 ML BOTTLE GT PRN (03:44)
[2022-04-07 04:36] LABS: BASOPHILS % (AUTO) 0.1 % (0.0-2.0); HEMATOCRIT 27 % (39-51); HEMOGLOBIN 9.3 g/dL (13.5-17.5); LYMPHOCYTES # (AUTO) 0.2 K/uL (0.8-4.8); LYMPHOCYTES % (AUTO) 2.1 % (20.0-44.0); MEAN CORPUSCULAR HGB CONC 35 g/dl (31.0-36.0); MEAN CORPUSCULAR VOLUME 95 fL (80-96); MONOCYTES # (AUTO) 0.4 K/uL (0.1-1.30); MONOCYTES % (AUTO) 5.2 % (2.0-12.0); NEUTROPHILS # (AUTO) 7.1 K/uL (1.8-8.9); NEUTROPHILS % (AUTO) 92.6 % (43.0-81.0); PLATELET COUNT (AUTO) 163 K/uL (150-450); RED BLOOD CELL COUNT(AUTO) 2.83 MIL/uL (4.5-6.0); WHITE BLOOD COUNT (AUTO) 7.7 K/uL (4.3-11.0)
[2022-04-07] MEDS: HYDROCORTISONE SOD SUCCINATE 100 MG/2 ML VIAL IV SCH ×3 (05:22→21:13)
[2022-04-07 05:27] LABS: CALCIUM, SERUM 7.2 mg/dL (8.5-10.1); CARBON DIOXIDE 35 mmol/L (21-32); CHLORIDE 108 mmol/L (98-107); CREATININE 0.6 mg/dL (0.6-1.3); GLUCOSE 103 mg/dL (74-106); MAGNESIUM 1.9 mg/dL (1.8-2.4); PHOSPHORUS 2.6 mg/dL (2.5-4.9); SODIUM SERUM 143 mmol/L (136-145); UREA NITROGEN, BLOOD 13 mg/dL (7-18)
[2022-04-07] MEDS: IV NS 0.9% 1,000 ML IV PRN ×2 (05:37→17:51)
[2022-04-07 05:39] LABS: POTASSIUM 2.5 mmol/L (3.5-5.1)
[2022-04-07] MEDS ORDERED: POTASSIUM CHLORIDE 20 MEQ TAB.PRT.SR PO ONE (06:00)
--- NOTE | 2022-04-07 06:05 | NUR ---
RN Note received critical lab, potassium 2.5. Informed Marce VASQUEZ. New order of 40 MEQ IV and 40 K-Dur. New order noted and carried out.
[2022-04-07] MEDS: POTASSIUM CL. PREMIX PERIPHER. 50 ML IV SCH ×4 (06:36→11:15)
--- NOTE | 2022-04-07 08:00 | NUR ---
RN NOTES Received patient awake and confused, unable to express self. No SOB noted, Breathing even and unlabored. on 3L/min via nasal cannula with o2 saturation of 95 percent via bedside monitor. suction mouth care done. ngt was dislodged, and unable to insert, HOB elevated 30 degrees. Right upper arm midline infusing NS at 125 cc/hr and dopamine at 4mcg/kg/min. Indwelling sanz catheter intact, draining yellow urine by gravity. Bilateral soft wrist restraints in place. Bilateral radial pulses wnl. Patient released from restraints to perform range of motion. Assisted with turning and repositioning. Bed low, in locked position. will follow up.
[2022-04-07] MEDS: DOCUSATE SODIUM LIQ 100 MG/10 ML UDC NG SCH ×3 (08:46→17:00)
[2022-04-07] MEDS: QUETIAPINE FUMARATE 25 MG TABLET PO SCH ×2 (08:46→09:00)
[2022-04-07] MEDS: MEMANTINE HCL 5 MG TABLET PO SCH ×2 (08:46→09:00)
[2022-04-07] MEDS: VIT B CMPLX 3/FA/VIT C/BIOTIN 1 TAB TABLET PO SCH ×2 (08:47→09:00)
[2022-04-07] MEDS: HEPARIN SODIUM, PORCINE 5000 UNITS/1 ML VIAL SQ SCH ×2 (08:48→17:59)
--- NOTE | 2022-04-07 09:00 | NUR ---
rn noted unable to administered due po medication because NGT unable to insert. hospitalist aware of, will try to insert NGT again.
--- NOTE | 2022-04-07 15:45 | NUR ---
rn notes tried 5 times to insert back NGT tube for feeding, but unable,tube was rolled back of the throat. notified hospitalist Dr Apodaca, and get new order swallow evaluation, order taken and carried out.
--- NOTE | 2022-04-07 18:00 | NUR ---
RN NOTES PM CARE DONE, SUCTION, PATIENT CONFUSED, UNABLE TO ADMINISTER PO MEDICATION BECAUSE OF NPO AND SWALLOW EVAL. NEEDS ATTENDED AND ATICIPATED, ASSIST TURN AND REPOSTION, INFUSING DOPAMINE 4MCG/KG/MIN, AND NS @ 125 ML/HR, ENDORSED ONCOMING NURSE, KAYLEEN.
--- NOTE | 2022-04-07 19:30 | NUR ---
RN NOTE Received patient in bed, awake, confused, incomprehensible sounds. Combative. Breathing even and unlabored at this time. On NC at 3l/min, tolerating well, o2 saturation of 95 percent via bedside monitor. On tele monitoring. Skin is warm and dry to touch. noted with right upper arm midline, infusing dopamin at 4 mcg and ns at 125 cc/hr. no infiltration noted. indwelling sanz catheter noted. noted with pinkish urine. no clots. draining by gravity. bilateral soft wrist restraints. Bilateral radial pulses palpable. Bed low, in locked position. will continue to monitor.
[2022-04-08] VITALS (61 sets, daily range): BP systolic 67–127; BP diastolic 21–105
[2022-04-08] MEDS: IPRATROPIUM/ALBUTEROL INHALER IH SCH ×5 (00:48→23:34)
[2022-04-08] MEDS: IV NS 0.9% 1,000 ML IV PRN ×2 (01:01→08:41)
--- NOTE | 2022-04-08 02:30 | NUR ---
RN NOTE NGT was reinserted in left nare 65 cm at the nare. Positive placement via auscultation. KUB was ordered to verify. Radiology with recommendation to advance NGT by 7 cm. NGT was adjusted to 72 cm at the nare. Notified operational trainer, ron. Agreed to wait for AM chest-xray to re-evalutate NGT placement.
[2022-04-08 04:17] LABS: HEMATOCRIT 28 % (39-51); HEMOGLOBIN 9.6 g/dL (13.5-17.5); LYMPHOCYTES # (AUTO) 0.2 K/uL (0.8-4.8); LYMPHOCYTES % (AUTO) 2.3 % (20.0-44.0); MEAN CORPUSCULAR HGB CONC 34 g/dl (31.0-36.0); MEAN CORPUSCULAR VOLUME 97 fL (80-96); MONOCYTES # (AUTO) 0.5 K/uL (0.1-1.30); MONOCYTES % (AUTO) 5.7 % (2.0-12.0); NEUTROPHILS # (AUTO) 7.5 K/uL (1.8-8.9); PLATELET COUNT (AUTO) 177 K/uL (150-450); RED BLOOD CELL COUNT(AUTO) 2.89 MIL/uL (4.5-6.0); WHITE BLOOD COUNT (AUTO) 8.2 K/uL (4.3-11.0)
[2022-04-08 04:34] LABS: ALANINE AMINOTRANSFERASE 70 U/L (12-78); ALBUMIN 1.5 g/dL (3.4-5.0); ALKALINE PHOSPHATASE 55 U/L (46-116); ASPARTATE AMINOTRANSFERASE 43 U/L (15-37); BILIRUBIN,TOTAL 0.4 mg/dL (0.2-1.0); CARBON DIOXIDE 32 mmol/L (21-32); CHLORIDE 109 mmol/L (98-107); CREATININE 0.7 mg/dL (0.6-1.3); GLUCOSE 85 mg/dL (74-106); MAGNESIUM 1.9 mg/dL (1.8-2.4); POTASSIUM 2.9 mmol/L (3.5-5.1); SODIUM SERUM 142 mmol/L (136-145); TOTAL PROTEIN, SERUM 4.5 g/dL (6.4-8.2); UREA NITROGEN, BLOOD 13 mg/dL (7-18)
[2022-04-08] MEDS: HYDROCORTISONE SOD SUCCINATE 100 MG/2 ML VIAL IV SCH ×3 (05:20→20:16)
--- NOTE | 2022-04-08 08:00 | NUR ---
RN NOTES RECEIVED PATIENT WAS INSERTED NGR, WAITING FOR X-RAY RESULT. LAB VALUES CHECKED KCL -2.9 MEQ, MD AWARE OF LAB RESULTS, FOR PLACEMENT. PATIENT STABLE , NO SOB NOTED, MOSES DRAINING VIA GRAVITY. INFUSING NS @125 ML/HR ON ALEKS INTACT, ASSIST TURN AND REPOSTION RECHECKED BILATERAL RESTRAINS INTACT. WILL FOLLOW UP.
--- NOTE | 2022-04-08 08:35 | NUR ---
RN NOTES X-RAY RESULT Compared to April 07, 2022, there is somewhat worsening aeration in the lower lobes with development of patchy opacities which could relate to atelectasis or airspace disease. There may be a small left-sided pleural effusion. There is no pneumothorax. Enteric tube side-port is below the GE junction.
[2022-04-08] MEDS: VIT B CMPLX 3/FA/VIT C/BIOTIN 1 TAB TABLET PO SCH (08:41)
[2022-04-08] MEDS: QUETIAPINE FUMARATE 25 MG TABLET PO SCH (08:41)
[2022-04-08] MEDS: POTASSIUM CHLORIDE 20 MEQ POWDER PACKET NG SCH ×5 (08:41→12:11)
[2022-04-08] MEDS: MEMANTINE HCL 5 MG TABLET PO SCH (08:41)
[2022-04-08] MEDS: DOCUSATE SODIUM LIQ 100 MG/10 ML UDC NG SCH ×2 (08:41→16:50)
[2022-04-08] MEDS: HEPARIN SODIUM, PORCINE 5000 UNITS/1 ML VIAL SQ SCH (08:42)
[2022-04-08] MEDS: JEVITY 1.2 CAL 1,000 ML BOTTLE GT PRN (08:52)
--- NOTE | 2022-04-08 09:00 | NUR ---
rn notes patient has bruise on left flank area , picture taken.
--- NOTE | 2022-04-08 09:25 | NUR ---
rn notes suction, patient has small amount od oral secretion, due medication administered, started NGT feeding at this time Jevity 50ml/hr. keep hob alveated. will follow up.
--- NOTE | 2022-04-08 11:33 | NUR ---
RN NOTES PER HOSPITALIST STOP IV INFSION, AND STABLE TO TRANSFER TO THE TELE UNIT.
[2022-04-08] MEDS ORDERED: NEUTRA PHOS 1 POWD.PACKET NG ONE (15:30)
--- NOTE | 2022-04-08 18:28 | NUR ---
R NOTES PATIENT STABLE, PM CARE DONE, SUCTION, MOUTH CARE, IV ACCESS ON FLACO INTACT. RUNNING JEVITY 1.2 ML/HR INTACT, DUE MEDICATION ADMINISTERED. ASSIST TURN AND REPOSTION Q 2 HR,RECHECKED BILATERAL WRIST RESTRAIN .URINE OUTPUT WAS 650 ML. ENDORSED ONCOMING NURSE KAYLEEN.
--- NOTE | 2022-04-08 19:34 | NUR ---
RN Note Received patient in bed, awake, talking but incomprehensible. Combative and restless. Breathing even and unlabored. Patient tolerating room air with O2 saturation of 97 percent. Noted with productive cough. Patient spits out thick white/pinkish sputum. unable to suction orally as patient is uncooperative. On tele monitoring. Skin is warm and dry to touch. Right upper arm midline. no IVF infusing. Intact. Patient with NGT that was inserted last night. 72 cm in the left nare. secured. Infusing Jevity at 50 cc/hr. HOB was elevated to 35 degrees. about 10 cc residual. Bilateral soft wrist restraints and bilateral mittens. Removed to assist with range of motion. patient combative and attempting to remove lines. reapplied. Bilateral radial pulses wnl. Pillows placed under both elbows and lower extremities. Turned and repositioned. Indwelling sanz catheter draining yellow urine by gravity. no visible hematuria. No bleeding noted at this time. Bed low, in locked position. Will continue to monitor.
[2022-04-09] VITALS (26 sets, daily range): BP systolic 75–146; BP diastolic 25–75
[2022-04-09] MEDS: HYDROCORTISONE SOD SUCCINATE 100 MG/2 ML VIAL IV SCH ×2 (05:00→10:46)
[2022-04-09] MEDS: IPRATROPIUM/ALBUTEROL INHALER IH SCH ×3 (06:00→17:46)
[2022-04-09] MEDS: DOCUSATE SODIUM LIQ 100 MG/10 ML UDC NG SCH ×2 (08:07→17:46)
[2022-04-09] MEDS: VIT B CMPLX 3/FA/VIT C/BIOTIN 1 TAB TABLET PO SCH (08:07)
[2022-04-09] MEDS: MEMANTINE HCL 5 MG TABLET PO SCH (08:07)
[2022-04-09] MEDS: QUETIAPINE FUMARATE 25 MG TABLET PO SCH (08:08)
--- NOTE | 2022-04-09 09:42 | NUR ---
ALL MEDS PRIOR TO 0700 GIVEN DURING DOWNTIME BY BOOTMAKER HAND RN.
[2022-04-09 10:37] LABS: CALCIUM, SERUM 7.1 mg/dL (8.5-10.1); CREATININE 0.8 mg/dL (0.6-1.3); POTASSIUM 3.3 mmol/L (3.5-5.1)
[2022-04-09] MEDS: POTASSIUM CL. PREMIX PERIPHER. 50 ML IV SCH ×4 (11:27→14:29)
[2022-04-09] MEDS: ZOSYN IVPB 3.375 G in IV D5W 50ml IV SCH ×2 (11:53→17:46)
[2022-04-09] MEDS ORDERED: PIPERACILLIN /TAZOBACTAM 3.375 G in IV D5W 50 ML IV SCH (13:00)
[2022-04-09] MEDS: ACETAMINOPHEN 325 MG TABLET PO PRN ×2 (15:51→18:23)
[2022-04-09] MEDS: JEVITY 1.2 CAL 1,000 ML BOTTLE GT PRN (18:16)
--- NOTE | 2022-04-09 19:22 | NUR ---
RN closing Note Received patient in bed, awake, talking but incomprehensible. Combative and restless. Breathing even and unlabored. Patient on 10L simple mask sating at 97 percent. Noted with productive cough. Patient spits out thick white/pinkish sputum. On tele monitoring. Skin is warm and dry to touch. Right upper arm midline. no IVF infusing. Intact. Patient with NGT at 72 cm in the left nare. secured. Infusing Jevity at 50 cc/hr. HOB was elevated to 35 degrees. Bilateral soft wrist restraints on, endorsed to maintenance technician 3rd shift rn for danny.
--- NOTE | 2022-04-09 19:30 | NUR ---
ICU/NURSING AGENCY MANAGER RECIEVED REPORT FROM DAY NURSE. SEE FLOWSHEET FOR ASSESSMENT. SKIN ISSUES ARE ADDRESSED ON FLOWSHEET. PT APPEARS TO BE AGITATED, RESTRAINTS ARE IN PLACE FOR PT'S SAFETY. PT WAS PULLED UP THEN TURNED AND REPOSITIONED. WILL CONTINUE TO CLOSELY MONITOR THIS PT.
[2022-04-10] VITALS (39 sets, daily range): BP systolic 87–122; BP diastolic 45–77
[2022-04-10] MEDS: IPRATROPIUM/ALBUTEROL INHALER IH SCH ×4 (00:11→17:51)
[2022-04-10] MEDS: ZOSYN IVPB 3.375 G in IV D5W 50ml IV SCH ×4 (00:16→17:51)
--- NOTE | 2022-04-10 00:30 | NUR ---
ICU/FAT PRESSROOM WORKER PT WAS TURNED AND REPOSITIONED FOR COMFORT AND CARE. N/G TUBE RESIDUALS WERE CHECKED. 5 ML RESIDUALS. PLACEMENT WAS CONFIRMED AND HEARD. WILL MONITOR THIS PT FOR ASPIRATION.
--- NOTE | 2022-04-10 04:15 | NUR ---
ICU/MANAGER QUALITY IMPROVEMENT AM LABS WERE DRAWN. CHEST XRAY WAS DONE. AWAIT FOR ANY ABNORMAL LABS
[2022-04-10] MEDS: JEVITY 1.2 CAL 1,000 ML BOTTLE GT PRN (04:46)
--- NOTE | 2022-04-10 07:30 | NUR ---
OPENING NOTE: REPORT RECEIVED FROM TORI MASON. ORDERS AND LABS REVIEWED DURING REPORT. PER REPORT PT HAS BEEN COMPATIVE OVERNIGHT. PT IS BILAT WRIST RESTRAINTS AND BILAT MITTENS PER MD ORDER. PT CHECKED ON HOURLY AND PRN BY NURSING STAFF.
--- NOTE | 2022-04-10 08:30 | NUR ---
TUBE FEEDING TURNED OFF AT THIS TIME D/T WORSENING AERATION BILAT LOWER LOBES OF LUNGS ON AM CHEST X-RAY. PER XRAY NG TUBE NEEDED TO BE ADVANCED. NG TUBE ADVANCED AT THIS TIME, RETAPED. PLACEMENT CHECKED ON NG TUBE POST ADVANCEMENT. MEDIUM LOOSE BM NOTED, COLACE DOSE HELD. PT CLEANED UP AND REPOSITIONED. PT CHECKED ON HOURLY AND PRN BY NURSING STAFF.
[2022-04-10] MEDS: VIT B CMPLX 3/FA/VIT C/BIOTIN 1 TAB TABLET PO SCH (08:46)
[2022-04-10] MEDS: DOCUSATE SODIUM LIQ 100 MG/10 ML UDC NG SCH ×3 (08:46→16:35)
[2022-04-10] MEDS: QUETIAPINE FUMARATE 25 MG TABLET PO SCH (08:46)
[2022-04-10] MEDS: HYDROCORTISONE SOD SUCCINATE 100 MG/2 ML VIAL IV SCH (08:46)
[2022-04-10] MEDS: MEMANTINE HCL 5 MG TABLET PO SCH (08:47)
[2022-04-10] MEDS: ENOXAPARIN SODIUM 40 MG/0.4 ML DISP.SYRIN SQ SCH (08:48)
[2022-04-10 09:29] LABS: EOSINOPHILS % (AUTO) 0.2 % (0.0-6.0); HEMATOCRIT 29 % (39-51); LYMPHOCYTES # (AUTO) 0.1 K/uL (0.8-4.8); LYMPHOCYTES % (AUTO) 2.6 % (20.0-44.0); MEAN CORPUSCULAR HGB CONC 35 g/dl (31.0-36.0); MEAN CORPUSCULAR VOLUME 97 fL (80-96); MONOCYTES # (AUTO) 0.1 K/uL (0.1-1.30); MONOCYTES % (AUTO) 1.2 % (2.0-12.0); NEUTROPHILS # (AUTO) 4.9 K/uL (1.8-8.9); PLATELET COUNT (AUTO) 151 K/uL (150-450); RED BLOOD CELL COUNT(AUTO) 2.98 MIL/uL (4.5-6.0); WHITE BLOOD COUNT (AUTO) 5.1 K/uL (4.3-11.0)
[2022-04-10 09:47] LABS: CALCIUM, SERUM 7.4 mg/dL (8.5-10.1); CREATININE 0.8 mg/dL (0.6-1.3)
[2022-04-10] MEDS: IV NS 0.9% 250 ML IV PRN (10:10)
[2022-04-10 12:50] LABS: BAND % (MANUAL) 47 % (0.0-5.0); EOSINOPHILS % (MANUAL) 2 % (0-4); LYMPHOCYTES % (MANUAL) 8 % (16-48); MONOCYTES % (MANUAL) 3 % (0-11.0); NEUTROPHILS % (MANUAL) 40 (42-76)
[2022-04-10] MEDS: DEXAMETHASONE SOD PHOSPHATE 10 MG/ML VIAL IV SCH (14:31)
--- NOTE | 2022-04-10 18:52 | NUR ---
END OF SHIFT NOTE: PT HAD A FAIRLY UNEVENTFUL SHIFT. PT HAD 1 LARGE LOOSE BM THIS AM. PT NT SUCTIONED X2 TODAY. PT CURRENTLY ON 5L NASAL CANNULA. TUBE FEEDING CONTINUES TO BE OFF D/T RISK OF ASPIRATION, PER MD'S WILL ASSESS AFTER CHEST XRAY IN AM. PT CHECKED ON HOURLY AND PRN BY NURSING STAFF.
--- NOTE | 2022-04-10 19:30 | NUR ---
ICU/PROJECT COORDINATOR RN RECIEVED REPORT FROM DAY NURSE MELISSA. SEE FLOWSHEET FOR ASSESSMENT. SKIN ISSUES ARE ADDRESSED ON FLOWSHEET. PT APPEARS TO BE AGITATED, RESTRAINTS ARE IN PLACE FOR SAFETY. PT WAS PULLED UP THEN TURNED AND REPOSITIONED. WILL CONTINUE TO CLOSELY MONITOR THIS PT.
[2022-04-11] VITALS (40 sets, daily range): BP systolic 89–126; BP diastolic 37–101
[2022-04-11] MEDS: ZOSYN IVPB 3.375 G in IV D5W 50ml IV SCH ×3 (00:04→11:15)
--- NOTE | 2022-04-11 03:45 | NUR ---
ICU/TOUR ESCORT PT FOUND PULLING AT MOSES, BRIGHT RED URINE. HAND IRRIGATED MOSES CATH. WILL MONITOR THIS PT'S OUTPUT/
[2022-04-11 04:26] LABS: BASOPHILS % (AUTO) 0.4 % (0.0-2.0); HEMATOCRIT 27 % (39-51); HEMOGLOBIN 9.4 g/dL (13.5-17.5); LYMPHOCYTES # (AUTO) 0.1 K/uL (0.8-4.8); LYMPHOCYTES % (AUTO) 1.4 % (20.0-44.0); MEAN CORPUSCULAR HGB CONC 35 g/dl (31.0-36.0); MEAN CORPUSCULAR VOLUME 96 fL (80-96); MONOCYTES # (AUTO) 0.1 K/uL (0.1-1.30); NEUTROPHILS # (AUTO) 7.4 K/uL (1.8-8.9); NEUTROPHILS % (AUTO) 97.2 % (43.0-81.0); PLATELET COUNT (AUTO) 122 K/uL (150-450); WHITE BLOOD COUNT (AUTO) 7.7 K/uL (4.3-11.0)
[2022-04-11 04:33] LABS: CALCIUM, SERUM 7.3 mg/dL (8.5-10.1); CREATININE 0.8 mg/dL (0.6-1.3)
[2022-04-11 04:35] LABS: POTASSIUM 2.8 mmol/L (3.5-5.1)
--- NOTE | 2022-04-11 05:12 | NUR ---
ICU/WIND DEVELOPMENT DIRECTOR PT NEEDED TO BE SUCTIONED FREQUENTLY THROUGH OUT SHIFT. PT APPEARS TO BE MORE CONGESTED AND UNABLE TO COUGH UP ANY SPUTUM, UNLIKE PREVIOUS DAYS. PT WAS THEN PLACED ON 10LITERS SIMPLE MASK, DUE TO SATURATION IN LOW 90'S AND INCREASED HEART RATE. WILL CONTINUE TO MONITOR THIS PT.
[2022-04-11] MEDS: IPRATROPIUM/ALBUTEROL INHALER IH SCH ×4 (06:24→17:35)
[2022-04-11] MEDS ORDERED: POTASSIUM CHLORIDE 20 MEQ POWDER PACKET NG ONE (06:30)
--- NOTE | 2022-04-11 06:50 | NUR ---
ICU/WAREHOUSE COORDINATOR PT'S POTASSIUM IS 2.8, NOTIFED HIM MANAGER ABOUT THIS. ASAD ORDERED 40MEQ POTASSIUM PO NOW THEN 20MEQ @0900. AND ALSO MAG LEVEL. VERIFIED ORDER THEN N/G TUBE PLACEMENT VERIFIED AND POTASSIUM GIVEN.
--- NOTE | 2022-04-11 07:30 | NUR ---
OPENING NOTE: REPORT RECEIVED FROM TORI MASON. ORDERS AND LABS REVIEWED DURING REPORT. PER REPORT PT WAS NT SUCTIONED X4 OVERNIGHT. PT PULLED AT MOSES CATHETER, DESPITE RESTRAINTS, UOP IS [place] IN COLOR. WILL CONTINUE TO MONITOR. PT CHECKED ON HOURLY AND PRN BY NURSING STAFF.
[2022-04-11] MEDS: MEMANTINE HCL 5 MG TABLET PO SCH (08:54)
[2022-04-11] MEDS: DOCUSATE SODIUM LIQ 100 MG/10 ML UDC NG SCH ×2 (08:54→17:00)
[2022-04-11] MEDS: VIT B CMPLX 3/FA/VIT C/BIOTIN 1 TAB TABLET PO SCH (08:54)
[2022-04-11] MEDS: QUETIAPINE FUMARATE 25 MG TABLET PO SCH (08:54)
[2022-04-11] MEDS: DEXAMETHASONE SOD PHOSPHATE 10 MG/ML VIAL IV SCH (08:54)
[2022-04-11] MEDS: ENOXAPARIN SODIUM 40 MG/0.4 ML DISP.SYRIN SQ SCH (08:55)
[2022-04-11] MEDS ORDERED: POTASSIUM CHLORIDE 20 MEQ POWDER PACKET GT ONE (09:00)
[2022-04-11] MEDS: POTASSIUM CHLORIDE 20 MEQ POWDER PACKET NG SCH (11:15)
[2022-04-11] MEDS: MEROPENEM 1 G in IV NS 0.9% 100 ML IV SCH (17:34)
--- NOTE | 2022-04-11 19:16 | NUR ---
END OF SHIFT NOTE: NO SIGNIFICANT EVENTS THIS SHIFT. PT ON 6L SIMPLE MASK. NO BM THIS SHIFT. PT CONTINUES TO BE CONFUSED AND AGITATED. PT CHECKED ON HOURLY AND PRN BY NURSING STAFF.
--- NOTE | 2022-04-11 19:30 | NUR ---
ICU/PATIENT FINANCIAL SERVICES MANAGER RECEIVED REPORT FROM DAY NURSE. SEE FLOWSHEET FOR ASSESSMENT. SKIN ISSUES ARE ADDRESSED ON FLOWSHEET ALONG WITH INTERVENTIONS TO EACH. PT CURRENTLY DOESN'T HAVE ANY IVF TO ADDRESS. PT WAS TURNED AND REPOSIONED FOR COMFORT AND CARE.
[2022-04-11] MEDS ORDERED: MEROPENEM 500 MG in IV NS 0.9% 50 ML IV SCH (21:00)
--- NOTE | 2022-04-11 22:30 | NUR ---
ICU/HOME CARE LIAISON RESPIRATORY THERAPIST IN ROOM TO SUCTION PT. PT REQUIRES FREQUENT SUCTIONING.
[2022-04-12] VITALS (37 sets, daily range): BP systolic 87–119; BP diastolic 17–70
[2022-04-12] MEDS: IPRATROPIUM/ALBUTEROL INHALER IH SCH ×4 (00:12→17:31)
--- NOTE | 2022-04-12 00:30 | NUR ---
ICU/STAFFING ASSISTANT PT WAS GIVEN A BATH. PT BECAME AGITATED KICKING, HITTING, BITING, RESTRAINTS REMAIN IN PLACE. PT WAS ALSO SUCTIONED AT THIS TIME. THIN, WHITE SPUTUM SEEN. PT WAS TURNED AND REPOSITIONED FOR COMFORT AND CARE. WILL CONTINUE TO MONITOR THIS PT.
--- NOTE | 2022-04-12 02:45 | NUR ---
ICU/HUNTING GUIDE PT WAS ORALY SUCTIONED WITH YANKAUER. PT WAS BITTING THE TUBE. PT THEN STARTED TO KICK. STOP SUCTIONING TO ALLOW PT TO CALM DOWN DUE TO HIGH HEART RATE AND AGITATION. WILL MONITOR THIS PT AND HIS SATURATION
[2022-04-12] MEDS: MEROPENEM 1 G in IV NS 0.9% 100 ML IV SCH ×2 (04:00→17:31)
[2022-04-12 04:27] LABS: HEMATOCRIT 25 % (39-51); HEMOGLOBIN 8.7 g/dL (13.5-17.5); LYMPHOCYTES # (AUTO) 0.1 K/uL (0.8-4.8); LYMPHOCYTES % (AUTO) 1.4 % (20.0-44.0); MEAN CORPUSCULAR HGB CONC 35 g/dl (31.0-36.0); MEAN CORPUSCULAR VOLUME 96 fL (80-96); MONOCYTES # (AUTO) 0.1 K/uL (0.1-1.30); MONOCYTES % (AUTO) 1.2 % (2.0-12.0); NEUTROPHILS # (AUTO) 9.2 K/uL (1.8-8.9); NEUTROPHILS % (AUTO) 97.4 % (43.0-81.0); PLATELET COUNT (AUTO) 92 K/uL (150-450); WHITE BLOOD COUNT (AUTO) 9.5 K/uL (4.3-11.0)
[2022-04-12 04:53] LABS: CALCIUM, SERUM 7.4 mg/dL (8.5-10.1); CARBON DIOXIDE 34 mmol/L (21-32); CHLORIDE 107 mmol/L (98-107); CREATININE 0.6 mg/dL (0.6-1.3); GLUCOSE 104 mg/dL (74-106); POTASSIUM 3.5 mmol/L (3.5-5.1); SODIUM SERUM 141 mmol/L (136-145); UREA NITROGEN, BLOOD 20 mg/dL (7-18)
[2022-04-12 05:00] LABS: NEUTROPHILS % (MANUAL) 94 (42-76)
[2022-04-12 05:01] LABS: BASOPHILS % (MANUAL) 0 % (0.0-2.0); EOSINOPHILS % (MANUAL) 0 % (0-4); LYMPHOCYTES % (MANUAL) 4 % (16-48); MONOCYTES % (MANUAL) 2 % (0-11.0)
--- NOTE | 2022-04-12 07:30 | NUR ---
RN OPENING NOTE PT OBSERVED IN BED WITH HOB HIGH FOWLERS. PT IS ON 6L O2 VIA SIMPLE MASK O2 SAT 100% TOLERATING WELL WITH NO SIGNS OF DISTRESS OR LABORED BREATHING. PT IS CONFUSED AND COMABTIVE AT THIS TIME WITH BILATERAL SOFT WRIST RESTRAINTS AND MITTENS. NG TUBE IS IN PLACE L NARE NO TUBE FEEDING AT THIS TIME DUE TO HIGH ASPIRATION RISK. FC IS IN PLACE DRAINING URINE TO GRAVITY. IV ACCESS R UA ML. BED IS LOCKED IN LOWEST POSITION X3 BED RAILS UP AND ALL HOSPITAL SAFETY MEASURES ARE IN PLACE. WILL CONTINUE TO MONITOR THIS SHIFT.
[2022-04-12] MEDS ORDERED: DOCUSATE SODIUM LIQ 100 MG/10 ML UDC NG PRN ×2 (08:30→09:00)
[2022-04-12] MEDS: DEXAMETHASONE SOD PHOSPHATE 10 MG/ML VIAL IV SCH (08:52)
[2022-04-12] MEDS: VIT B CMPLX 3/FA/VIT C/BIOTIN 1 TAB TABLET PO SCH (08:52)
[2022-04-12] MEDS: MEMANTINE HCL 5 MG TABLET PO SCH (08:52)
[2022-04-12] MEDS: QUETIAPINE FUMARATE 25 MG TABLET PO SCH (08:52)
[2022-04-12] MEDS: ENOXAPARIN SODIUM 40 MG/0.4 ML DISP.SYRIN SQ SCH (08:54)
[2022-04-12] MEDS: IV NS 0.9% 250 ML IV PRN (17:31)
--- NOTE | 2022-04-12 18:46 | NUR ---
RN CLOSING NOTE PT IS IN BED WITH HOB SEMI FOWLERS. PT IS ON 8L O2 VIA SIMPLE MASK O2 SAT 100% TOLERATING WELL WITH NO SIGNS OF DISTRESS OR LABORED BREATHING. PT CONTINUES TO BE CONFUSED AND COMABTIVE AT THIS TIME WITH BILATERAL SOFT WRIST RESTRAINTS AND MITTENS. NG TUBE IS IN PLACE L NARE TUBE FEEDING HAS NOT RESUMED PER MD AT THIS TIME DUE TO HIGH ASPIRATION RISK. FC IS IN PLACE DRAINING URINE TO GRAVITY -700ML AND 1 BM. IV ACCESS R UA ML. BED IS LOCKED IN LOWEST POSITION X3 BED RAILS UP AND ALL HOSPITAL SAFETY MEASURES ARE IN PLACE. WILL ENDORES TO AGRICULTURAL ENGINEERING TECHNICIAN NURSE FOR KAYLEEN.
--- NOTE | 2022-04-12 19:25 | NUR ---
ICU/DRIVER MEDIC RECIEVED REPORT FROM DAY NURSE MELISSA. SEE FLOWSHEET FOR ASSESSMENT. SKIN ISSUES ARE ADDRESSED ON FLOWSHEET. PT APPEARS TO BE AGITATED. SIMPLE MASK AT 10 LITERS WITH SATURATION IS HIGH 80'S TO 90'S. PT WAS PULLED UP THEN TURNED AND REPOSITIONED. WILL CONTINUE TO CLOSELY MONITOR THIS PT AND HIS SATURATION.
--- NOTE | 2022-04-12 20:45 | NUR ---
ICU/NATIONAL SALES ASSOCIATE ID ASSISTANT BOILER OPERATOR SHANEL HAD ASKED ABOUT A SPUTUM CULTURAL ORDERED SOMETIME DURING THE WEEK. NONE WERE COLLECTED. WENT IN WITH RT TO COLLECT SPUTUM CULTURE.
[2022-04-12 22:12] LABS: ABG BASE EXCESS 2.4 mmol/L; ABG OXYGEN SATURATION 66.4 % (92.0-98.5); ABG PCO2 36.5 mmHg (35.0-45.0); ABG PO2 33.1 mmHg (75.0-100.0); COHb 0.1 % (0.5-1.5); MetHb 0.2 % (0.0-1.5); O2Hb 66.2 % (94.0-97.0); SITE, ABG Right Brachial; VENT MODE, BG 15L NRB
--- NOTE | 2022-04-12 22:15 | NUR ---
ICU/WOUND CARE CENTER CONSULTANT 2099-SPUTUM CULTURE WAS COLLECTED, HOWEVER PT WENT INTO DISTRESS. 2114-ORDERED STAT ABG 2119-SENT ABG TO FURNACE ROOM SUPERVISOR HIGH DANIELITO KAMARA ORDERED. 2129-STAT CXR WAS ORDERED SINCE IN THE MORNING ONE WASN'T ORDERED.
--- NOTE | 2022-04-12 22:30 | NUR ---
rt called to pt bedside due to low spo2. abg completed showing low po2 reading. pt placed on high flow nasal canula per physician order. Addendum: 04/13/22 at 0223 by CINDY MONTELONGO RT Amended: Links added.
--- NOTE | 2022-04-12 23:45 | NUR ---
ICU/BOTTOM STAINER 2209-STAT CXR WAS DONE, SATURATION REMAINS BETWEEN LOW 70'S TO LOW 80'S. WITH LABORED BREATHING. 2235-RESULTS SENT TO ORAL AND MAXILLOFACIAL SURGERY RESIDENT ASAD ABOUT LEFT LUNG WHITE OUT, POSSIBLE MUCOUS PLUG 2249-FAMILY CALLED ABOUT THE CHANGE IN PT'S CONDITION. SATURATION IS SLOWLY GOING UP TO MID 80'S TO LOW 90'S. 2320-FAMILY AT ROOM, ASKED ABOUT CODE STATUS. 2340-FAMILY ASKED THAT PT BE MADE A DNR AND NOT BE INTUBATED. CALLED THE ORAL AND MAXILLOFACIAL SURGERY RESIDENT ABOUT THIS. ORDERS RECEIVED AND CARRIED OUT.
--- NOTE | 2022-04-12 23:50 | NUR ---
TIPPLE OPERATOR PT NOTED EARLIER WITH LOW SATURATION AND INCREASED WORK OF BREATHING. ABG AND CXR ORDERED WITH RESULTS RELAYED TO Jeff GUTIÉRREZ DRIER TAKE OFF TENDER ORDER FOR HI FLOW RECEIVED WITH PT NEEDING POSSIBLE INTUBATION. INFORMED SON BRYSON ASHFORD OF CHANGE IN PTS CONDITION; SON AND OTHER FAMILY MEMBERS CAME TO SEE PT. PER FAMILY WISHES PT IS TO BE DNR/DNI. REQUEST FOR MEETING WITH DOCTORS FOR PLAN OF CARE/TREATMENT.
[2022-04-13] VITALS (28 sets, daily range): BP systolic 86–132; BP diastolic 32–83
[2022-04-13] MEDS: IPRATROPIUM/ALBUTEROL INHALER IH SCH ×4 (01:06→17:32)
--- NOTE | 2022-04-13 01:31 | NUR ---
ICU/ENGINE CLEANER [id number] AT ROOM. SATURATION SLOWLY CAME UP TO 90'S. 0040- FAMILY WENT HOME 0100- PT'S STARTED TO COUGH WITH SOME DISTRESS HOWEVER PT UNABLE TO BRING UP ANY SPUTUM LIKE BEFORE, RT WENT INTO ROOM TO SUCTION PT. SATURATION REMAINS 70'S-80'S. WILL MONITOR THIS PT.
--- NOTE | 2022-04-13 02:00 | NUR ---
ICU/PLANT MAINTENANCE WORKER SATURATION CAME UP TO 95-98%. WILL CONTINUE TO MONITOR THIS PT. PT IS CURRENTLY ON HIGH FLOW 40L WITH [id number], PLUS NRM 15 LITERS. WILL MONITOR THIS PT.
[2022-04-13] MEDS: MEROPENEM 1 G in IV NS 0.9% 100 ML IV SCH ×2 (04:11→18:39)
--- NOTE | 2022-04-13 04:15 | NUR ---
ICU/PUBLIC HEALTH CLINICAL NURSE SPECIALIST SATURATION IS 100% AT THIS TIME, PT IS NOT AGITATED LIKE BEFORE, NON REBREATHER MASK TAKEN OFF WILL MONITOR THIS PT'S SATURATION.
--- NOTE | 2022-04-13 06:50 | NUR ---
ICU/DIRECTOR PRODUCT PT'S SATURATION CAME DOWN TO LOW 70'S, WENT IN REPOSITIONED PT AND ALSO DEEP SUCTIONED PT. PT APPEARS TO BE AGITATED, WITH WEAK COUGH. PLACED PT ON NRB MASK 15 LITERS IN ADDITION TO HIGH FLOW. WILL MONITOR THIS PT.
--- NOTE | 2022-04-13 07:55 | NUR ---
RT PATIENT REC'D ON HFNC 40L 100%, SPO2 90%. WILL REMAIN ON THESE SETTINGS UNTIL ABLE TO TOLERATE O2 TITRATION.
[2022-04-13] MEDS: MEMANTINE HCL 5 MG TABLET PO SCH (08:32)
[2022-04-13] MEDS: VIT B CMPLX 3/FA/VIT C/BIOTIN 1 TAB TABLET PO SCH (08:32)
[2022-04-13] MEDS: QUETIAPINE FUMARATE 25 MG TABLET PO SCH (08:32)
[2022-04-13] MEDS: ENOXAPARIN SODIUM 40 MG/0.4 ML DISP.SYRIN SQ SCH (08:33)
[2022-04-13] MEDS: DEXAMETHASONE SOD PHOSPHATE 10 MG/ML VIAL IV SCH (08:34)
[2022-04-13] MEDS: MORPHINE SULFATE INJ 2 MG/ML DISP.SYRIN IV PRN (09:12)
--- NOTE | 2022-04-13 10:44 | NUR ---
SS consult requested for plan of care/treatment. Pt. is a 71-year-old male who was admitted to [facility] on 03/25/2022 due to sepsis and COVID-19. Upon SS consult, pt.s nurse Lawerence stated the pt. is not able to be interviewed at this time. medical planner notified the pt.s nurse Lawerence to follow-up with the MD and family regarding the plan of care/treatment since is it is out of Discharge planners scope of practice.
[2022-04-13] MEDS: IV D5/0.45 NACL 1,000 ML IV SCH (12:09)
[2022-04-13] MEDS: ACETYLCYSTEINE 10% SOLN 400 MG/4 ML VIAL NEB SCH ×2 (15:30→23:47)
[2022-04-14] VITALS (25 sets, daily range): BP systolic 88–143; BP diastolic 40–95
[2022-04-14 03:52] LABS: EOSINOPHILS % (AUTO) 0.1 % (0.0-6.0); HEMATOCRIT 29 % (39-51); HEMOGLOBIN 9.8 g/dL (13.5-17.5); LYMPHOCYTES # (AUTO) 0.1 K/uL (0.8-4.8); LYMPHOCYTES % (AUTO) 1.9 % (20.0-44.0); MEAN CORPUSCULAR HGB CONC 34 g/dl (31.0-36.0); MEAN CORPUSCULAR VOLUME 97 fL (80-96); MONOCYTES # (AUTO) 0.1 K/uL (0.1-1.30); MONOCYTES % (AUTO) 1.6 % (2.0-12.0); NEUTROPHILS # (AUTO) 5.2 K/uL (1.8-8.9); NEUTROPHILS % (AUTO) 96.4 % (43.0-81.0); PLATELET COUNT (AUTO) 87 K/uL (150-450); RED BLOOD CELL COUNT(AUTO) 2.95 MIL/uL (4.5-6.0); WHITE BLOOD COUNT (AUTO) 5.4 K/uL (4.3-11.0)
[2022-04-14 04:15] LABS: CALCIUM, SERUM 7.5 mg/dL (8.5-10.1); CARBON DIOXIDE 33 mmol/L (21-32); CHLORIDE 103 mmol/L (98-107); CREATININE 0.6 mg/dL (0.6-1.3); GLUCOSE 146 mg/dL (74-106); POTASSIUM 3.7 mmol/L (3.5-5.1); SODIUM SERUM 138 mmol/L (136-145); UREA NITROGEN, BLOOD 15 mg/dL (7-18)
[2022-04-14] MEDS: MEROPENEM 1 G in IV NS 0.9% 100 ML IV SCH ×2 (05:00→17:09)
[2022-04-14] MEDS: IPRATROPIUM/ALBUTEROL INHALER IH SCH ×4 (06:00→18:00)
--- NOTE | 2022-04-14 07:05 | NUR ---
RN NOTES RECEIVED PT ON BED , ALERT/ NONVERBAL , COMBATIVE, ON TELE SR-ST ,PT ON HIGH FLOW O2 AND NONREBREATHER MASKS , O2 SAT WNL, MOSES DRAINING TO GRAVITY, NGT CLAMPED , IVF RUNNING AT 50CC/HR , R UPPER ARM MID LINE SITE CDI, SR UP x3, CALL LIGHT WITHIN EASY REACH, BED LOCKED AND IN LOWEST POSITION, CONTINUE TO MONITOR .
[2022-04-14] MEDS: ACETYLCYSTEINE 10% SOLN 400 MG/4 ML VIAL NEB SCH ×3 (07:45→23:56)
[2022-04-14] MEDS: IV D5/0.45 NACL 1,000 ML IV SCH (07:59)
[2022-04-14] MEDS: QUETIAPINE FUMARATE 25 MG TABLET PO SCH (08:19)
[2022-04-14] MEDS: DEXAMETHASONE SOD PHOSPHATE 10 MG/ML VIAL IV SCH (08:20)
[2022-04-14] MEDS: MEMANTINE HCL 5 MG TABLET PO SCH (08:28)
[2022-04-14] MEDS: VIT B CMPLX 3/FA/VIT C/BIOTIN 1 TAB TABLET PO SCH (08:28)
[2022-04-14] MEDS: ENOXAPARIN SODIUM 40 MG/0.4 ML DISP.SYRIN SQ SCH (09:00)
--- NOTE | 2022-04-14 09:03 | NUR ---
RN NOTES PLT =[address] MONREAL ORDER ,
--- NOTE | 2022-04-14 11:00 | NUR ---
RN NOTES PHONE CONSENT OBTAINED FROM PT SON REGARDING US GUIDED THORACENTESIS .
--- NOTE | 2022-04-14 14:00 | NUR ---
RN NOTES PT ON HIGH FLOW O2 AND NONREBREATHER MASK AT 15 L. O2 SAT WNL, CONTINUE TO MONITOR .
--- NOTE | 2022-04-14 18:45 | NUR ---
RN NOTES PT REMAINS ON HIGH FLOW O2 AND NONREBREATHER MASK AT 15, PT RESTLESS AND COMBATIVE AT TIMES,NT SUCTIONING DONE PRN, SMALL AMOUNT OF WHITISH SECRETION NOTED, NO SIGNFICANT CHANGES NOTED ON THIS SHIFT , WILL ENDORSE TO TECHNOLOGY METHODOLOGY CONSULTANT NURSE FOR CONTINUITY OF CARE.
[2022-04-15] VITALS (24 sets, daily range): BP systolic 93–166; BP diastolic 38–77
[2022-04-15] MEDS: IV D5/0.45 NACL 1,000 ML IV SCH (04:13)
[2022-04-15 04:23] LABS: HEMATOCRIT 27 % (39-51); HEMOGLOBIN 9.2 g/dL (13.5-17.5); LYMPHOCYTES # (AUTO) 0.1 K/uL (0.8-4.8); LYMPHOCYTES % (AUTO) 1.3 % (20.0-44.0); MEAN CORPUSCULAR HGB CONC 35 g/dl (31.0-36.0); MEAN CORPUSCULAR VOLUME 97 fL (80-96); MONOCYTES # (AUTO) 0.1 K/uL (0.1-1.30); MONOCYTES % (AUTO) 0.8 % (2.0-12.0); NEUTROPHILS # (AUTO) 8.6 K/uL (1.8-8.9); NEUTROPHILS % (AUTO) 97.9 % (43.0-81.0); PLATELET COUNT (AUTO) 67 K/uL (150-450); RED BLOOD CELL COUNT(AUTO) 2.77 MIL/uL (4.5-6.0); WHITE BLOOD COUNT (AUTO) 8.7 K/uL (4.3-11.0)
[2022-04-15] MEDS: MEROPENEM 1 G in IV NS 0.9% 100 ML IV SCH (04:29)
[2022-04-15 04:46] LABS: CALCIUM, SERUM 7.2 mg/dL (8.5-10.1); CARBON DIOXIDE 35 mmol/L (21-32); CHLORIDE 103 mmol/L (98-107); CREATININE 0.6 mg/dL (0.6-1.3); GLUCOSE 124 mg/dL (74-106); POTASSIUM 3.6 mmol/L (3.5-5.1); SODIUM SERUM 138 mmol/L (136-145); UREA NITROGEN, BLOOD 13 mg/dL (7-18)
[2022-04-15] MEDS: IPRATROPIUM/ALBUTEROL INHALER IH SCH ×4 (05:43→18:00)
--- NOTE | 2022-04-15 07:38 | NUR ---
TIMEKEEPING SUPERVISOR Note: presents with O2 Sat 100%, Titrated of NRM. Pt remains on HI Flow 40L 100% per RT
--- NOTE | 2022-04-15 07:55 | NUR ---
CREATIVE CONSULTANT Note: O2 Sat Currently 88-91% on Hi Flow. Will continue to monitor. RT aware
[2022-04-15] MEDS: VIT B CMPLX 3/FA/VIT C/BIOTIN 1 TAB TABLET PO SCH (08:00)
[2022-04-15] MEDS: MEMANTINE HCL 5 MG TABLET PO SCH (08:00)
[2022-04-15] MEDS: DEXAMETHASONE SOD PHOSPHATE 10 MG/ML VIAL IV SCH (08:00)
[2022-04-15] MEDS: QUETIAPINE FUMARATE 25 MG TABLET PO SCH (08:00)
[2022-04-15] MEDS: ACETYLCYSTEINE 10% SOLN 400 MG/4 ML VIAL NEB SCH ×3 (08:25→23:27)
--- NOTE | 2022-04-15 10:11 | NUR ---
SPECIALTY DEVELOPMENT CONSULTANT Note: Rogelio (son) @ bedside accompanied by kayy perez. Updated family of plan of care. All questions and concerns addressed
--- NOTE | 2022-04-15 10:50 | NUR ---
NAILER MACHINE Note: Pt reassessed and repositioned for better body alignment. Notice NGT "Coiled in mouth". NGT removed. Will reinsert.
[2022-04-15] MEDS ORDERED: DOSING PER PHARMACY-TOBRA INHALATION 1 EA XX PRN (11:30)
[2022-04-15] MEDS: MORPHINE SULFATE INJ 2 MG/ML DISP.SYRIN IV PRN (14:10)
--- NOTE | 2022-04-15 15:55 | NUR ---
ARC WELDING MACHINE OPERATOR Note: Family Visitor - Luisar (Grandson) @ bedside updated on POC
--- NOTE | 2022-04-15 17:16 | NUR ---
COMPLEX CASE MANAGER note: Unsuccessful attempt to Reinsert NGT x2. Pt desaturated to 70's secondary to increases restlessness during insertion. Will notify MD and will attempt to reinsert NGT again once O2 Sat increases
--- NOTE | 2022-04-15 19:31 | NUR ---
agricultural research engineer. initial assessment received the pt rest im bed. pt is very lethargic. oxygen nonrebreatherand high flow. 40 L 100%.paco soft wrist restraint checked and released. no injury or redness noted. campus monitor showing nsr.iv rt upper arm mid line, ivf d51/2 ns 50 ml/h. hob elevated. fc patent. will continue to monitor vitals.
[2022-04-15] MEDS: TOBRAMYCIN 80 MG/2 ML VIAL INH SCH (21:20)
--- NOTE | 2022-04-15 21:28 | NUR ---
RECEIVED PT ON HFNC 40L, 100% +NRB. O2 SAT 92%. CONTINUE TO MONITOR. Addendum: 04/15/22 at 2129 by SAM AYOUB RT Amended: Links added.
[2022-04-16] VITALS (79 sets, daily range): BP systolic 69–127; BP diastolic 44–81
[2022-04-16] MEDS: IV D5/0.45 NACL 1,000 ML IV SCH ×2 (01:01→20:42)
--- NOTE | 2022-04-16 02:51 | NUR ---
RESIDENTIAL SALES CONSULTANT. PT IS VERY UNSTABLE. OXYGEN HIGH FLOW AND NONREBREATHER MAX OUT. SAT 70%. PT HAVING TACHYPNEIC. NOTIFIED RT . WILL MONITOR,
--- NOTE | 2022-04-16 04:21 | NUR ---
AM CARE GIVEN. PT IS VERY UNSTABLE. OXYGEN HIGH FLOW AND NON REBREATHER MAX OUT. HOB ELEVATED. FC PATENT. PT IS OBTUNDED, NOTIFIED FAMILY.
[2022-04-16] MEDS ORDERED: NOREPINEPHRINE 4 MG/4 ML AMPUL IV ONE ×2 (04:48→04:53)
[2022-04-16] MEDS: NOREPINEPHRINE 32 MG in IV NS 0.9% 218 ML IV PRN (04:59)
[2022-04-16 05:04] LABS: HEMATOCRIT 30 % (39-51); LYMPHOCYTES # (AUTO) 0.3 K/uL (0.8-4.8); LYMPHOCYTES % (AUTO) 3.3 % (20.0-44.0); MEAN CORPUSCULAR HGB CONC 33 g/dl (31.0-36.0); MEAN CORPUSCULAR VOLUME 101 fL (80-96); MONOCYTES # (AUTO) 0.1 K/uL (0.1-1.30); MONOCYTES % (AUTO) 0.7 % (2.0-12.0); NEUTROPHILS # (AUTO) 9.8 K/uL (1.8-8.9); RED BLOOD CELL COUNT(AUTO) 2.98 MIL/uL (4.5-6.0); WHITE BLOOD COUNT (AUTO) 10.2 K/uL (4.3-11.0)
[2022-04-16 05:12] LABS: PLATELET COUNT (AUTO) 31 K/uL (150-450)
--- NOTE | 2022-04-16 05:29 | NUR ---
TELEVISION MAINTENANCE MAN. BLOOD PRESSURE IS 67/45. LEVOPHED STARTED. FAMILY AT BED SIDE.
[2022-04-16 05:52] LABS: LYMPHOCYTES % (MANUAL) 4 % (16-48); MONOCYTES % (MANUAL) 2 % (0-11.0); NEUTROPHILS % (MANUAL) 94 (42-76)
[2022-04-16 05:53] LABS: BASOPHILS % (MANUAL) 0 % (0.0-2.0); EOSINOPHILS % (MANUAL) 0 % (0-4)
[2022-04-16] MEDS: IPRATROPIUM/ALBUTEROL INHALER IH SCH ×5 (06:00→23:54)
[2022-04-16] MEDS: ACETYLCYSTEINE 10% SOLN 400 MG/4 ML VIAL NEB SCH ×3 (07:35→23:29)
--- NOTE | 2022-04-16 08:12 | NUR ---
RN/ICU PT RECEIVED OBTUNDED RETRACTS TO PAIN EYES SHONNA. ON HIGH FLOW NASAL CANULA AND NON REBREATHER SAT IN THE LOW 90'S BREATHING IS EVEN AND SHALLOW. BEDSIDE MONITOR SHOWS SINUS TACH BP KEPT ABOVE ORDERED PARAMETER WITH PHARMACOLOGICAL PRESSURE SUPPORT OF LEVO. ONE BM REPORTED FROM JACKHAMMER OPERATOR MOSES CATH DRAINING URINE. FLANK BRUISE PRESENT NO S/S OF EDEMA. RESTRAINTS REMOVED AND NO LONGER APPLIED. NO NG TUBE IS CURRENTLY INSERTED. FLACO MIDLINE IS PATENT AND RUNNING D1/2NS @50ML/HR. PLATELETS ARE LOW AND WAS REPORTED TO JACKHAMMER OPERATOR FOOD SERVICE SUPERVISOR NO ORDERED WERE GIVEN. PT IS DNR/DNI. ALARMS HAVE BEEN CHECKED, BED LOCKED HOB ELEVATED TO 45 DEGREES.
[2022-04-16] MEDS ORDERED: DEXAMETHASONE SOD PHOSPHATE 4 MG/ML VIAL IV SCH (09:00)
[2022-04-16] MEDS: MEMANTINE HCL 5 MG TABLET PO SCH (09:00)
[2022-04-16] MEDS: QUETIAPINE FUMARATE 25 MG TABLET PO SCH (09:00)
[2022-04-16] MEDS: VIT B CMPLX 3/FA/VIT C/BIOTIN 1 TAB TABLET PO SCH (09:00)
--- NOTE | 2022-04-16 09:04 | NUR ---
PO MEDS HELD NO NG TUBE HIGH ASPIRATION RISK AND OBTUNDED DR MONREAL NOTIFIED
[2022-04-16] MEDS: TOBRAMYCIN 80 MG/2 ML VIAL INH SCH (09:32)
[2022-04-16 09:57] LABS: CALCIUM, SERUM 7.5 mg/dL (8.5-10.1); CREATININE 0.9 mg/dL (0.6-1.3); POTASSIUM 3.8 mmol/L (3.5-5.1)
[2022-04-16] MEDS: HYDROCORTISONE SOD SUCCINATE 100 MG/2 ML VIAL IV SCH ×3 (11:23→21:31)
--- NOTE | 2022-04-16 19:15 | NUR ---
RN OPENING NOTES RECEIVED PATIENT ON BED, OBTUNDED, ON HIGH FLOW OXYGEN @ 40L, FIO2- 100% AND NONREBREATHER MASK @ 15 LPM SATING WITH 96%. AFEBRILE. PATIENT WITH FLACO MID LINE, PATENT, INTACT FLUSHED WITH NS, NO S/S OF INFILTRATION NOTED. WITH IVF D5 1/2NS @ 50 ML/HR. MOSES CATHETER PATENT INTACT DRAINING URINE VIA GRAVITY. ALL SAFETY PRECAUTION PROVIDED. REPOSITION Q2HRS. BED IN LOWEST POSITION. LOCKED. BED ALARM ARMED. CONTINUE TO MONITOR.
--- NOTE | 2022-04-16 19:25 | NUR ---
RN/ ICU REPORT GIVEN TO MICHAEL PT ON DOUBLE SET UP SATS IN THE HIGH 100 AND 90S. BREATHING EVENLY AND SHALLOW NO S/S OF RESPIRATORY DISTRESS. NO LONGER ST CONVERTED TO SR @98. MOSES CATHETER DRAIN 300ML OF YVES URINE. PT CONTINUES TO BE ON LEVO .4 SBP KEPT ABOVE 90. BED LOCKED HOB ELEVATED TO 45 DEGREES
--- NOTE | 2022-04-16 19:46 | NUR ---
RECEIVED PT ON HFNC 40L, 100% +NRB. O2 SAT 98%. WILL CONTINUE TO MONITOR T/O SHIFT.
[2022-04-17] VITALS (96 sets, daily range): BP systolic 89–136; BP diastolic 53–69
[2022-04-17 04:36] LABS: BASOPHILS % (AUTO) 0.2 % (0.0-2.0); HEMATOCRIT 26 % (39-51); HEMOGLOBIN 8.8 g/dL (13.5-17.5); LYMPHOCYTES # (AUTO) 0.1 K/uL (0.8-4.8); LYMPHOCYTES % (AUTO) 0.8 % (20.0-44.0); MEAN CORPUSCULAR HGB CONC 34 g/dl (31.0-36.0); MEAN CORPUSCULAR VOLUME 97 fL (80-96); MONOCYTES # (AUTO) 0.3 K/uL (0.1-1.30); MONOCYTES % (AUTO) 1.7 % (2.0-12.0); NEUTROPHILS # (AUTO) 15.1 K/uL (1.8-8.9); NEUTROPHILS % (AUTO) 97.3 % (43.0-81.0); RED BLOOD CELL COUNT(AUTO) 2.69 MIL/uL (4.5-6.0); WHITE BLOOD COUNT (AUTO) 15.5 K/uL (4.3-11.0)
[2022-04-17 04:49] LABS: PLATELET COUNT (AUTO) 45 K/uL (150-450)
[2022-04-17 05:28] LABS: BASOPHILS % (MANUAL) 0 % (0.0-2.0); EOSINOPHILS % (MANUAL) 0 % (0-4); LYMPHOCYTES % (MANUAL) 2 % (16-48); MONOCYTES % (MANUAL) 3 % (0-11.0); NEUTROPHILS % (MANUAL) 95 (42-76)
--- NOTE | 2022-04-17 05:30 | NUR ---
RN NOTES UPON DOING ADL'S PATIENT NOTED WITH SACRAL WOUND, SIZE 1.0CM X 1.0 CM WITH SCANT DRAINAGE. MD MADE AWARE WITH NEW ORDER NOTED AND CARRIED OUT. INITIAL TREATMENT DONE CLEANSE WITH NS PAT DRY COVER WITH OPTIFOAM. CONTINUE TO REPOSITION, CONTINUE TO OFFLOAD.
[2022-04-17] MEDS: HYDROCORTISONE SOD SUCCINATE 100 MG/2 ML VIAL IV SCH ×3 (05:35→20:25)
[2022-04-17] MEDS: IPRATROPIUM/ALBUTEROL INHALER IH SCH ×4 (05:35→23:12)
[2022-04-17] MEDS: NOREPINEPHRINE 32 MG in IV NS 0.9% 218 ML IV PRN (06:39)
--- NOTE | 2022-04-17 07:35 | NUR ---
RN/ICU PT RECEIVED EYES CLOSED PUPILS CHECKED AND BILATERALLY RESPONSIVE RECOILS FROM PAIN. ON DOUBLE SET UP NON REBREATHER AND HIGH FLOW SAT 96% BREATHING IS EVEN AND SHALLOW SLIGHTLY LABORED BEEN THE CASE FOR SEVERAL DAYS. MIDLINE IS INTACT AND PATENT NO S/S OF INFILTRATION. RUNNING FLUIDS 50ML/HR AND LEVO AT 0.4. PB HAS BEEN STABLE THROUGHOUT THE NIGHT SBP RANGING FROM 98-120 WILL BE TITRATING DOWN THROUGHOUT THE SHIFT. MOSES CATHETER IN PLACE AND DRAINING DARK YVES URINE. NG TUBE INSERTION TO BE ATTEMPTED BEFORE MED PASS. BED LOCKED HOB ELVATED TO 35 DEGREES.
[2022-04-17] MEDS: ACETYLCYSTEINE 10% SOLN 400 MG/4 ML VIAL NEB SCH ×3 (08:28→23:31)
[2022-04-17] MEDS: QUETIAPINE FUMARATE 25 MG TABLET PO SCH (09:00)
[2022-04-17] MEDS: MEMANTINE HCL 5 MG TABLET PO SCH (09:00)
[2022-04-17] MEDS: VIT B CMPLX 3/FA/VIT C/BIOTIN 1 TAB TABLET PO SCH (09:00)
--- NOTE | 2022-04-17 09:11 | NUR ---
PT NOT GIVEN PO MEDS DUE TO ASPIRATION RISK. NG TUBE INSERTION ATTEMPTED SEVERAL TIMES AND WAS UNSUCCESSFUL AND KEPT ON COILING IN THE OROPHARYNX. NOTFIED Addendum: 04/17/22 at 1131 by DEBORAH GUADALUPE RN PT ALSO WENT INTO RESPIRATORY DISTRESS WITH SATS DROPPING TO 75%
--- NOTE | 2022-04-17 10:10 | NUR ---
WOUND CARE CONSULT: PT PRESENTS WITH SACRAL DEEP TISSUE INJURY IN EVOLUTION. PT NOTED TO HAVE MULTIPLE CO-MORBIDITIES INCLUDING ACUTE HYPOXIC RESPIRATORY FAILURE SECONDARY TO COVID 19 PNEUMONIA, CACHEXIA/MALNUTRITION, SEPSIS, DEMENTIA, AND THROMBOCYTOPENIA. DUE TO MULTIPLE CO-MORBIDITIES, FURTHER SKIN BREAKDOWN MAY BE UNAVOIDABLE. DISCUSSED SKIN PROTECTION AND WOUND CARE WITH NURSING STAFF. AURELAI RIVERS NOTED. IN AGREEMENT WITH PLAN OF CARE. Addendum: 04/17/22 at 1012 by REBEKAH MARTINEZ WNDNU Amended: Links added.
[2022-04-17] MEDS: IV D5/0.45 NACL 1,000 ML IV SCH (15:36)
--- NOTE | 2022-04-17 18:57 | NUR ---
RN/ICU PT STABLE OBTUNDED AND APHASIC. ON DOUBLE SET UP, NON REBREATHER AND HIGH-FLOW O2 SAT 100% BREATHING IS EVEN AND SLIGHTLY LABORED WITH THE USE OF ACCESSORY MUSCLES. BEDSIDE MONITOR SHOWS SR. SBP KEPT ABOVE 90 PER PROTECTOL. SONS AND EDUCATED ON THE NEED FOR COMFORT MEASURES STATED THAT THEY WILL ALL TALK TO MAKE A FINAL DECISION. PT'S HOB IS ELEVATED AND BED IS LOCKED.
--- NOTE | 2022-04-17 19:15 | NUR ---
[employer] FLATBED DRIVER NOTES RECEIVED PT FOR CONTINUITY OF CARE. PATIENT A/OX0; OBTUNDED IN NO S/SX OF ACUTE DISTRESS AT THIS TIME; CURRENTLY ON DOUBLE SETUP NRB MASK @15L AND HIGH FLOW 40L 100%, WITH 02 SAT >95% AT THIS TIME. RECEIVED PT WITH RUNNING DRIPS FOLLOWS: NS@50MLS/HR, LEVO RECEIVED AT 0.4MCG/KG/MIN RUNNING, MONITORED AND ADJUSTED PER PROTOCOL. ON NPO WITH STRICT ASPIRATION PREC. WITH MOSES CATH IN PLACE, AND SECURED RECEIVED WITH NO URINE OUTPUT. WILL ENSURE SAFETY MEASURES WITHIN THE SHIFT. PATIENT BED ALARM IS ON. HEAD OF BED ELEVATED. BED IS LOCKED, IN LOWEST POSITION AND SIDE RAILS UP. CALL LIGHT WITHIN REACH OF THE PATIENT. WILL CONTINUE TO MONITOR AND REASSESS FOR ANY CHANGES AND WILL CARRY OUT ANY ONGOING AND ACTIVE MD ORDER.
[2022-04-18] VITALS (98 sets, daily range): BP systolic 77–112; BP diastolic 47–67
--- NOTE | 2022-04-18 04:00 | NUR ---
RN NOTES PATIENT REMAINED TO BE IN NO SIGNS OF ACUTE RESPIRATORY DISTRESS , VITAL SIGNS STABLE AT THIS TIME. REGULAR TURNING AND REPOSITIONING DONE Q2H. AM PATIENT CARE DONE. WILL CONTINUE TO MONITOR AND REASSESS FOR ANY CHANGES THROUGHOUT THE SHIFT.
[2022-04-18] MEDS: HYDROCORTISONE SOD SUCCINATE 100 MG/2 ML VIAL IV SCH ×3 (04:33→21:20)
[2022-04-18 05:01] LABS: HEMATOCRIT 28 % (39-51); LYMPHOCYTES # (AUTO) 0.2 K/uL (0.8-4.8); LYMPHOCYTES % (AUTO) 1.4 % (20.0-44.0); MEAN CORPUSCULAR HGB CONC 33 g/dl (31.0-36.0); MEAN CORPUSCULAR VOLUME 100 fL (80-96); MONOCYTES # (AUTO) 0.4 K/uL (0.1-1.30); NEUTROPHILS # (AUTO) 11.2 K/uL (1.8-8.9); NEUTROPHILS % (AUTO) 95.6 % (43.0-81.0); RED BLOOD CELL COUNT(AUTO) 2.78 MIL/uL (4.5-6.0); WHITE BLOOD COUNT (AUTO) 11.7 K/uL (4.3-11.0)
[2022-04-18] MEDS: IPRATROPIUM/ALBUTEROL INHALER IH SCH ×3 (05:13→18:13)
[2022-04-18 05:26] LABS: CALCIUM, SERUM 7.3 mg/dL (8.5-10.1); CHLORIDE 104 mmol/L (98-107); CREATININE 1.4 mg/dL (0.6-1.3); GLUCOSE 168 mg/dL (74-106); POTASSIUM 4.5 mmol/L (3.5-5.1); SODIUM SERUM 143 mmol/L (136-145); UREA NITROGEN, BLOOD 43 mg/dL (7-18)
[2022-04-18 05:30] LABS: CARBON DIOXIDE 42 mmol/L (21-32)
[2022-04-18 05:31] LABS: PLATELET COUNT (AUTO) 34 K/uL (150-450)
--- NOTE | 2022-04-18 05:37 | NUR ---
FIBREGLASS LAMINATOR NOTES CRITICAL LAB RECEIVED FROM CATE, CO2:42 AND PLATELET:34. RN ACKNOWLEDGED. BEAUTY CULTURIST APPRENTICE MADE AWARE. NOTIFIED ONCSUHA VASQUEZ (RONALD,CADMIUM PLATER)
[2022-04-18] MEDS: NOREPINEPHRINE 32 MG in IV NS 0.9% 218 ML IV PRN (06:30)
--- NOTE | 2022-04-18 06:34 | NUR ---
SOLAR ENERGY CONSULTANT AND DESIGNER CLOSING NOTE: PATIENT REMAINS IN ROOM IN NO SIGNS OF RESPIRATORY DISTRESS, PATIENT STILL ON DOUBLE SETUP NRB MASK @15L AND HIGH FLOW 40L 100%, WITH 02 SAT >95%. SAFETY MEASURES IMPLEMENTED, BED IN LOWEST POSITION, LOCKED, SIDE RAILS UP, CALL LIGHT WITHIN REACH. ALL NEEDS AND ORDERS ADDRESSED DURING THE SHIFT. IV ACCESS MAINTAINED INTACT, SECURED AND FLUSHING WELL. ALL DUE MEDS GIVEN ORDERED & SCHEDULED ; PATIENT TOLERATED WELL. STILL WITH ONGOING DRIP NS@50MLS/HR, LEVO AT 0.4MCG/KG/MIN RUNNING, MONITORED AND ADJUSTED PER PROTOCOL. PT STILL ON NPO. CRITICAL LAB ENDORSED TO KYLIE (RONALD,PERSONAL BANKING REPRESENTATIVE) FOR PLATELET AND CO2. PATIENT KEPT CLEAN AND COMFORTABLE WITHIN THE SHIFT. PATIENT ENDORSED TO INCOMING SHIFT RN WITH STABLE VITAL SIGN AND FOR CONTINUITY OF CARE.
[2022-04-18] MEDS: ACETYLCYSTEINE 10% SOLN 400 MG/4 ML VIAL NEB SCH ×3 (07:28→23:55)
--- NOTE | 2022-04-18 07:54 | NUR ---
RN/ICU PT RECEIVED OBTUNDED,OFF LOADED, NO FACIAL GRIMACING RUNNING LEVO AND D5 1/2NS. V/S STABLE SBP KEPT ABOVE PRESCRIBED PARAMETERS. BREATHING EVEN WITH SHALLOW BREATH AND USE OF ACCESSORY MUSCLES PT ON DOUBLE SET UP O2 SAT 100%. LAB REPORTED THAT CO2 IS ELEVATED @ 42. PLATELETS DROPPED TO 34 ON CALLED NOTIFIED. MIDLINE PATENT AND RUNNING FLUID NO S/S OF INFILTRATION. HOB ELEVATED TO 35 DEGREES BED LOCKED.
[2022-04-18] MEDS: MEMANTINE HCL 5 MG TABLET PO SCH (09:00)
[2022-04-18] MEDS: QUETIAPINE FUMARATE 25 MG TABLET PO SCH (09:00)
[2022-04-18] MEDS: VIT B CMPLX 3/FA/VIT C/BIOTIN 1 TAB TABLET PO SCH (09:00)
[2022-04-18 09:45] LABS: LYMPHOCYTES % (MANUAL) 2 % (16-48); NEUTROPHILS % (MANUAL) 98 (42-76)
[2022-04-18] MEDS: IV D5/0.45 NACL 1,000 ML IV SCH (09:49)
--- NOTE | 2022-04-18 10:33 | NUR ---
RN/ICU CONFERENCE PLANNER TRIAL OFF NONREBREATHER
--- NOTE | 2022-04-18 11:21 | NUR ---
PLACED INTO NON REBREATHER @ 15 LPM O2 FLOW. HIGH FLOW ON STAND BY @ BEDSIDE. TITRATE SPO2 > OR EQUAL TO 88% PER DR. FRENCH. Addendum: 04/18/22 at 1125 by JOSÉ ANTONIO THOMAS RT Amended: Links added.
[2022-04-18] MEDS ORDERED: PHENYLEPHRINE 100 MG in IV NS 0.9% 240 ML IV PRN (22:30)
[2022-04-18] MEDS ORDERED: PHENYLEPHRINE 10 MG/ML VIAL ONE (22:47)
[2022-04-19] VITALS (10 sets, daily range): BP systolic 56–129; BP diastolic 43–57
[2022-04-19] MEDS: IPRATROPIUM/ALBUTEROL INHALER IH SCH (00:08)
[2022-04-19] MEDS: NOREPINEPHRINE 32 MG in IV NS 0.9% 218 ML IV PRN (00:08)
--- NOTE | 2022-04-19 01:25 | NUR ---
OFFICE SERVICES SPECIALIST PT NOTED WITH DECREASED SATURATION DESPITE BEING ON HI FLOW ALSO HR DECREASED INFORMED FAMILY WHO CAME TO SEE PT AND CHOSE FOR COMFORT CARE AT THIS MOMENT; NEXT OF KIN SEUN [place] [facility] OTHER FAMILY MEMBERS ALL AGREED PT HAD SUFFERED ENOUGH. FAMILY EMPHASIZED TO PLEASE STOP EVERYTHING NOW. INFORMED TITLE CLERK AUTOMOBILE RONALD WITH ORDERS FOR COMFORT CARE. FAMILY REMAINS AT BEDSIDE.
[2022-04-19] MEDS ORDERED: MORPHINE SULFATE INJ 2 MG/ML DISP.SYRIN IV PRN (01:30)
--- NOTE | 2022-04-19 01:45 | NUR ---
PICCOLOIST NOTED PT NOTED WITHOUT RESPIRATIONS UNABLE TO HEAR BREATH SOUNDS UNABLE TO PALPATE PULSE OR BLOOD PRESSURE. NO STIMULI TO PAIN. PUPILS FIXED. FAMILY AT BEDSIDE.
--- NOTE | 2022-04-19 02:22 | NUR ---
RN/ICU PT AT 0145 CENTRAL PULSES PALPATED PULSELESS ELECTRICAL ACTIVITY NOTED PRONOUNCED BY CHARGE NURSE ELIZABETH AND MYSELF. FAMILY REMAINED IN THE ROOM FOR SEVERAL MINUTES AND SIGNED RECORD OF . [facility] CALLED PT WAS NOT A CANDIDATE FOR ORGAN HARVESTING.
== END 2022-04-19 02:34 | DRG 871 ==
LOC: ER 21:53 → MEDSG1 03-25 01:46 → TELE1 03-25 03:35 → MEDSG1 03-25 08:00 → TELE1 03-25 19:52 → ICU 03-25 21:36
PROVIDERS: ADMIT Nurse Practitioner Family; ATTEND Internal Medicine
PROC: 05H533Z Insertion of Infusion Device into Right Subclavian Vein, Percutaneous Approach (ICD-10-PCS; principal; 2022-03-26)
PROC: B546ZZA Ultrasonography of Right Subclavian Vein, Guidance (ICD-10-PCS; 2022-03-26)
DX: A41.89 Other specified sepsis (principal); D65 Disseminated intravascular coagulation [defibrination syndrome]; E43 Unspecified severe protein-calorie malnutrition; G93.41 Metabolic encephalopathy; U07.1 COVID-19; J12.82 Pneumonia due to coronavirus disease 2019; R65.21 Severe sepsis with septic shock; J96.01 Acute respiratory failure with hypoxia; N17.0 Acute kidney failure with tubular necrosis; J15.9 Unspecified bacterial pneumonia; E87.2 Acidosis; D68.59 Other primary thrombophilia; R64 Cachexia; E27.40 Unspecified adrenocortical insufficiency; J98.11 Atelectasis; Z68.1 Body mass index [BMI] 19.9 or less, adult; Z51.5 Encounter for palliative care; G30.9 Alzheimer's disease, unspecified; F02.80 Dementia in other diseases classified elsewhere, unspecified severity, without behavioral disturbance, psychotic disturbance, mood disturbance, and anxiety; D63.8 Anemia in other chronic diseases classified elsewhere; E83.42 Hypomagnesemia; E83.39 Other disorders of phosphorus metabolism; E87.6 Hypokalemia; E88.09 Other disorders of plasma-protein metabolism, not elsewhere classified; R13.10 Dysphagia, unspecified; Z66 Do not resuscitate; Z74.09 Other reduced mobility; M62.50 Muscle wasting and atrophy, not elsewhere classified, unspecified site; T17.990A Other foreign object in respiratory tract, part unspecified in causing asphyxiation, initial encounter; X58.XXXA Exposure to other specified factors, initial encounter; Y93.9 Activity, unspecified; Y92.009 Unspecified place in unspecified non-institutional (private) residence as the place of occurrence of the external cause
CPT/HCPCS: 31720; 36415; 36600; 71045-TC; 74018; 76604-TC; 76770-TC; 80048-TC; 80053-TC; 80076-TC; 82533; 82803-TC; 83605-TC; 83735-TC; 84100-TC; 84155; 84165; 84439-TC; 84443-TC; 84484-TC; 85025-TC; 85378-TC; 85730-TC; 86140-TC; 87040-TC; 87070-TC; 87081-TC; 87186-TC; 92526; 92611-TC; 93307-TC; 94640-TC; 94664; 94760-TC; 94762-TC; 94799-TC; A4624; C9803; G0378; J1100; J1265; J1644; J1650; J1720; J2185; J2270; J2370; J2543; J3260; J3475; J3480; J3490; J7030; J7042; J7050; J7060; J7120; J8540